=== PATIENT | male | born 1965 | race Caucasian/White ===

== ENCOUNTER → 2017-01-17 | Outpatient (CLI) | payer BC ==
[2017-01-17 18:44] LABS: BASO % 0.1 %; BASO ABS # 0.01 K/uL (0-0.2); COMPLETE YES; EOS % 1.6 %; HEMATOCRIT 40.7 % (42-52); IG% 0.1 %; LYMPH % 29.4 %; LYMPH ABS # 2.18 K/uL (1.2-3.4); MEAN CELL VOLUME 85.9 fL (80-100); MEAN CORPUSCULAR HEMOGLOBIN 30.4 pg (25-34); MEAN CORPUSCULAR HGB CONC 35.4 g/dl (32-36); MEAN PLATELET VOLUME 9.7 fL (7.4-10.4); NEUT % 64.8 %; PLATELET COUNT 123 K/uL (130-400); RED BLOOD COUNT 4.74 M/uL (4.7-6.1); WHITE BLOOD COUNT 7.42 K/uL (4.8-10.8)
[2017-01-17 19:09] LABS: ALT/SGPT 41 U/L (12-78); BLOOD UREA NITROGEN 16 mg/dl (7-18); BUN/CREATININE RATIO 11.9 (10-20); C-REACTIVE PROTEIN < 0.29 mg/dl (0-0.29); CALCIUM 9.1 mg/dl (8.5-10.1); CARBON DIOXIDE 28 mmol/L (21-32); CHLORIDE 108 mmol/L (98-107); GLUCOSE 85 mg/dl (70-99); POTASSIUM 4.2 mmol/L (3.5-5.1); SODIUM 140 mmol/L (136-145)
[2017-01-17 19:14] LABS: ALB/GLOB RATIO 1.2 (0.9-2); ALKALINE PHOSPHATASE 67 U/L (45-117); AST/SGOT 18 U/L (15-37); FERRITIN 83.7 ng/ml (8.0-388.0)
[2017-01-18 07:12] LABS: ESTIMATED AVERAGE GLUCOSE 100 mg/dl; HA1C FLAG Normal (Normal)
== END | disposition home or self-care (01) ==
LOC: C.LAB 18:21
PROVIDERS: ATTEND Chiropractor
DX: M79.1 Myalgia (principal)

== ENCOUNTER 2023-05-01 17:27 | Inpatient (IN) ==
--- NOTE | 2023-05-01 18:33 | ED Triage Note ---
Date of Service May 01, 2023 History of Present Illness This patient was briefly evaluated while in triage. An abbreviated physical exam was performed. This patient is a 58-year-old Male who presents to the ED for evaluation following referral by Dr. Colindres, oncology. History of tongue/throat cancer on chemo/radiation and has been unable to tolerate PO intake for the last 3 weeks. Needs GI/Surg consult for PEG tube insertion. Denies fevers. Physical Exam Constitutional: alert and oriented x3. no acute distress. lethargic HEENT: normocephalic, atraumatic. normal conjunctiva.PERRLA. EOM's grossly intact. Respiratory: lungs are clear to auscultation without wheezes, rhonchi, or rales bilaterally. equal chest rise. normal respiratory effort, no accessory muscle use. Cardiovascular: normal heart sounds without murmur. regular rate and rhythm. GI: abdomen is soft, nontender. MSK: moves all 4 extremities spontaneously Psych:appropriate mood and affect. Initial orders for labs and / or imaging were placed and patient was taken to the room immediately. Please see further documentation for the full ED course.
[2023-05-01] MEDS ORDERED: SODIUM CHLORIDE 0.9% 1,000 ML IV ONE ×2 (18:48→22:29)
--- NOTE | 2023-05-01 18:49 | Emergency Department Note ---
Impression & Plan Malnutrition due to starvation, Squamous cell carcinoma of base of tongue, Dehydration, Hypomagnesemia, Pancytopenia ED Provider Note NAME: ERICH MAIER AGE: 58 SEX: M ARRIVES VIA: Walk-In INFORMANT: Patient ED PROVIDER(S): Daniel Montalvo MD CHIEF COMPLAINT: Poor oral intake, SCC of the tongue, Referred. Consultation for feeding tube. PLAN: Disposition: Admit MEDICAL DECISION MAKING: The patient is a pleasant 58-year-old gentleman with a past medical history of squamous cell carcinoma of the tongue who presents to the emergency department referred by his oncology office for admission for IV fluid hydration and specialty consultation for possible feeding tube placement. The patient was seen in the emergency department on 04/25 and 04/20 for poor oral intake, syncope and rule out for bowel obstruction. He has CT of the and pelvis that was negative for acute process on the . He reports moving his bowels once since his emergency department visit last week but has not done so since but is also not had much to eat. He denies abdominal pain. He reports he has nausea and vomiting that has been chronic and is unchanged. He reports stable pain in his tongue and throat related to his tongue cancer for which she is receiving radiation and chemotherapy though has not had chemotherapy for a couple of weeks due to thrombocytopenia. He denies any chest pain, shortness of breath, cough, congestion, urinary symptoms. Of note, the patient did arrive to emergency department during time of high volume, acuity and prolonged emergency department waiting times. Critical pathways initiated from triage. On my evaluation the patient is fatigued appearing but no acute distress, afebrile stable vital signs. Appears clinically dry. Abdomen is benign. Per the patient and his 's request I did contact [facility] oncology on-call and reviewed the case with Dr. Watts who is not directly familiar with the patient though would find it reasonable if the patient has had continued decline with poor oral intake to consider feeding tube and admission for supportive care. WBC 1.2k, H/H 7.7/21.4, and platelets 62K approximate 2, slightly decreased from recent values in the setting of recent pancytopenia from the patient's cancer treatment. Chemistry without metabolic acidosis. Creatinine is normal. BUNs/creatinine is 25, consistent with the patient's clinically dry appearance. Magnesium 1.5 with IV repletion provided. LFTs without significant abnormality. TSH is low however free T4 within normal limits. Case was discussed with Dr. Moreno, [facility] hospitalist who will evaluate the patient for admission. Case discussed with GI on-call, Dr. Cisse, on behalf of admitting team. Patient should be able to have PEG tube placed during his hospitalization here. Admitting team was updated. Triage Nursing notes reviewed and agree them. Prior/outside medical records reviewed Vital Signs: reviewed Differential diagnosis: Gastroenteritis, food borne illness, infections, appendicitis, diverticulitis, inflammatory bowel disease, obstruction, GI bleed, biliary pathology, volvulus, as well as other pathologies. ER treatment provided: See below. Diagnostics interpreted by me: ECG: Normal sinus rhythm, 84 bpm, no ectopy, no overt ST elevation or depression, LVH, QTc 423, QRS 84. Significant artifact is present. Cardiac Monitoring: An order for continuous cardiac monitoring was placed and demonstrated Normal sinus rhythm, 84 bpm, no ectopy. Laboratory studies: See below Imaging studies: See below Consultation(s): Dr. Watts, [facility] oncology on-call. HPI: The patient is a pleasant 58-year-old gentleman with a past medical history of squamous cell carcinoma of the tongue who presents to the emergency department referred by his oncology office for admission for IV fluid hydration and specialty consultation for possible feeding tube placement. The patient was seen in the emergency department on 04/25 and 04/20 for poor oral intake, syncop e and rule out for bowel obstruction. He has CT of the and pelvis that was negative for acute process on the . He reports moving his bowels once since his emergency department visit last week but has not done so since but is also not had much to eat. He denies abdominal pain. He reports he has nausea and vomiting that has been chronic and is unchanged. He reports stable pain in his tongue and throat related to his tongue cancer for which she is receiving radiation and chemotherapy though has not had chemotherapy for a couple of weeks due to thrombocytopenia. He denies any chest pain, shortness of breath, cough, congestion, urinary symptoms. ROS: See above HPI for pertinent positives & negatives. A total of 10 systems reviewed and were otherwise negative. VITALS:See Below PHYSICAL EXAMINATION: GENERAL: Awake, alert, fatigued-appearing, in no distress HENT: Normocephalic, atraumatic. Oropharynx with dry mucous membranes. EYES: Normal conjunctiva. Sclera non-icteric. NECK: Supple. No nuchal rigidity. FROM. No JVD. No stridor. No pain with tracheal manipulation. RESPIRATORY: Clear to auscultation. CARDIAC: Regular rate, normal rhythm. Extremities warm and well perfused. Pulses equal. ABDOMEN: Soft, non-distended. No tenderness to palpation. No rebound or guarding. No masses. RECTAL: Deferred. MUSCULOSKELETAL: Chest examination reveals no tenderness. The back is symmetrical on inspection without obvious abnormality. There is no CVA tenderness to palpation. No joint edema. LOWER EXTREMITIES: Calves are equal size bilaterally and non-tender. No edema. No discoloration. NEURO: Normal sensorium. No sensory or motor deficits noted. SKIN: No rash or jaundice noted. Daniel Montalvo MD Past Med/Surg History Medical History GERD (gastroesophageal reflux disease) Hypertension Osteoarthritis Pancytopenia Shingles rash childhood - age 14 - on face Squamous cell carcinoma of base of tongue Umbilical hernia Vitiligo Surgical History H/O arthroscopy of left knee 07/09/2001 H/O hernia repair Umbilical; Dr. Christopher Dumont Hx of colonoscopy 04/01/2021; hyperplastic polyp, repeat 10 yrs / COLONOSCOPY FLEXIBLE PROXIMAL DIAGNOSTICperformed by Paco Kim MD at [facility] Family History Mother Diabetes mellitus, type II Lymphoma Father Hypertension Parkinson disease Osteoarthritis Sister No problems noted. Sister No problems noted. 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; How many Children do You have: 2 Feels Safe at Home: Yes Allergies Allergies Allergy/AdvReac Type Severity Reaction Status Date / Time Penicillins Allergy Mild Hives Verified 05/01/23 07:45 pollen Allergy Mild Hives Uncoded 05/01/23 07:45 Home Meds Home Medications Medication Instructions Recorded Confirmed cholecalciferol (vitamin D3) 125 125 mcg PO DAILY 03/01/23 05/01/23 mcg (5,000 unit) capsule multivitamin 1 tab PO DAILY 03/01/23 05/01/23 polyethylene glycol 3350 17 17 g PO .MWF 03/01/23 05/01/23 gram/dose oral powder krill 350 mg-omega-3 90 mg-dha 24 1 cap PO DAILY 04/04/23 05/01/23 mg-epa 50 [id number] capsule (MegaRed [employer]-3 Krill Oil) ondansetron HCl 8 mg tablet 8 mg PO Q8H PRN nausea/vomiting 04/04/23 05/01/23 prochlorperazine maleate 10 mg 10 mg PO Q6H PRN nausea/vomiting 04/04/23 05/01/23 tablet (Compazine) hydrochlorothiazide 25 mg tablet 25 mg PO DAILY 04/17/23 05/01/23 ibuprofen 400 mg tablet 400 mg PO Q6H PRN Pain 04/17/23 05/01/23 Magic Mouthwash 300 mL mouthwash 10 ml mucous membrane ACHS PRN 04/25/23 05/01/23 Sore Throat metoclopramide HCl 10 mg tablet 10 mg PO Q6 05/01/23 05/01/23 pantoprazole 40 mg tablet,delayed 40 mg PO QAM 05/01/23 05/01/23 release Previous Rx's Medication Instructions Recorded tramadol 50 mg tablet 50 mg PO Q8H PRN pain #60 tabs 04/24/23 Results & Data (ED) Vital Signs Vital Signs - 24 hr 05/01/23 18:33 05/01/23 19:27 05/01/23 22:19 Temperature 36.4 C L Temperature Source Temporal Artery Scan Pulse Rate 93 H Pulse Rate [Right Finger] 84 86 Respiratory Rate 20 16 18 Respiratory Effort / Characteristics Non-Labored Non-Labored Spontaneous Non-Labored Spontaneous Respiratory Depth Normal Normal Blood Pressure 114/76 Blood Pressure [Right Arm] 112/75 121/78 Blood Pressure Mean 88 Blood Pressure Mean [Right Arm] 87 92 Pulse Oximetry 99 98 100 Oxygen Delivery Method Room Air Room Air Room Air Sepsis Recent Fever Within 48 Hours No Sepsis New/Unexplained Change in Mental Status N/A Sepsis Action Taken by Nursing No Action Required 05/02/23 00:15 05/02/23 01:59 Temperature Temperature Source Pulse Rate Pulse Rate [Right Finger] 86 82 Respiratory Rate 16 18 Respiratory Effort / Characteristics Non-Labored Spontaneous Non-Labored Spontaneous Respiratory Depth Normal Blood Pressure Blood Pressure [Right Arm] 131/75 126/78 Blood Pressure Mean Blood Pressure Mean [Right Arm] 93 94 Pulse Oximetry 100 98 Oxygen Delivery Method Room Air Room Air Sepsis Recent Fever Within 48 Hours Sepsis New/Unexplained Change in Mental Status Sepsis Action Taken by Nursing Laboratory Data Attestation: I reviewed the patient's lab results. 05/01/23 20:02 05/01/23 19:54 Lab Results 05/01/23 05/01/23 05/01/23 Range/Units 19:54 19:54 19:59 WBC (4.8-10.8) K/ul RBC (4.70-6.10) M/uL Hgb (14.0-18.0) g/dl POC Hgb 7.5 L (14.0-18.0) g/dl Hct (42.0-52.0) % POC Hct 22 L (42-52) % MCV (80.0-100.0) fL MCH (25.0-34.0) pg MCHC (32.0-36.0) g/dL RDW Std Deviation (36.4-46.3) fL RDW Coeff of Tiesha (11.5-14.5) % Plt Count (130-400) K/uL MPV (9.4-12.4) fL Neutrophils % (Manual) % Lymphocytes % (Manual) % Monocytes % (Manual) % Myelocytes % (Man) % Neutrophils # (Manual) (1.40-6.50) K/uL Total Absolute Neuts (1.4-6.5) K/uL Lymphocytes # (Manual) (1.2-3.4) K/uL Total Abs Lymphocytes (1.2-3.4) K/uL Monocytes # (Manual) (0.11-0.59) K/uL Myelocytes # (Manual) (0-0) K/uL Polychromasia Anisocytosis PT 12.2 H (9.0-12.0) Seconds INR 1.1 (0.9-1.1) POC Sodium 136 (135-144) mmol/L Sodium 135 L (136-145) mmol/L POC Potassium 4.7 (3.3-5.0) mmol/L Potassium 4.7 (3.5-5.1) mmol/L POC Chloride 100 L (101-112) mmol/L Chloride 102 (98-107) mmol/L Carbon Dioxide 25 (21-32) mmol/L POC Total CO2 24 (24-31) mmol/L Anion Gap 8 (3-11) POC Anion Gap 17.0 (16-25) mmol/L POC BUN 20 H (7-18) mg/dl BUN 21 (6-23) mg/dl Creatinine 0.84 (0.6-1.4) mg/dl POC Creatinine 0.8 (0.6-1.3) mg/dl Est Cr Clr Drug Dosing 102.1 ml/min Est GFR ( Amer) 111.9 ml/min Est GFR (Non-Af Amer) 96.5 ml/min BUN/Creatinine Ratio 25.0 H (10-20) Glucose 94 (70-99(Fasting)) mg/dl POC Glucose (other) 94 (70-99) mg/dl Calcium 9.9 (8.6-10.3) mg/dl POC Ioniz Calcium Grace 1.27 (1.12-1.32) mmol/l Phosphorus 4.1 (2.5-4.9) mg/dl Magnesium 1.5 L (1.7-2.4) mg/dl Total Bilirubin 1.0 (0.2-1.0) mg/dl Direct Bilirubin 0.3 H (0-0.2) mg/dl AST 12 L (13-39) U/L ALT 12 (7-52) U/L Alkaline Phosphatase 68 (34-104) U/L Total Protein 6.6 (6.0-8.3) gm/dl Albumin 4.2 (3.4-5.0) gm/dl Globulin 2.4 L (2.5-4.0) gm/dl Albumin/Globulin Ratio 1.8 (0.9-2) Lipase 54 (11-82) U/L TSH 0.020 L (0.300-4.500) uIu/ml Free T4 1.05 (0.61-1.60) ng/dl 05/01/23 Range/Units 20:02 WBC 1.25 L (4.8-10.8) K/ul RBC 2.48 L (4.70-6.10) M/uL Hgb 7.7 L (14.0-18.0) g/dl POC Hgb (14.0-18.0) g/dl Hct 21.4 L (42.0-52.0) % POC Hct (42-52) % MCV 86.3 (80.0-100.0) fL MCH 31.0 (25.0-34.0) pg MCHC 36.0 (32.0-36.0) g/dL RDW Std Deviation 37.9 (36.4-46.3) fL RDW Coeff of Tiesha 16.3 H (11.5-14.5) % Plt Count 62 L (130-400) K/uL MPV 9.8 (9.4-12.4) fL Neutrophils % (Manual) 85 % Lymphocytes % (Manual) 9 % Monocytes % (Manual) 5 % Myelocytes % (Man) 1 % Neutrophils # (Manual) 1.06 L (1.40-6.50) K/uL Total Absolute Neuts 1.06 L (1.4-6.5) K/uL Lymphocytes # (Manual) 0.11 L (1.2-3.4) K/uL Total Abs Lymphocytes 0.11 L (1.2-3.4) K/uL Monocytes # (Manual) 0.06 L (0.11-0.59) K/uL Myelocytes # (Manual) 0.01 H (0-0) K/uL Polychromasia 1+ Anisocytosis Present PT (9.0-12.0) Seconds INR (0.9-1.1) POC Sodium (135-144) mmol/L Sodium (136-145) mmol/L POC Potassium (3.3-5.0) mmol/L Potassium (3.5-5.1) mmol/L POC Chloride (101-112) mmol/L Chloride (98-107) mmol/L Carbon Dioxide (21-32) mmol/L POC Total CO2 (24-31) mmol/L Anion Gap (3-11) POC Anion Gap (16-25) mmol/L POC BUN (7-18) mg/dl BUN (6-23) mg/dl Creatinine (0.6-1.4) mg/dl POC Creatinine (0.6-1.3) mg/dl Est Cr Clr Drug Dosing ml/min Est GFR ( Amer) ml/min Est GFR (Non-Af Amer) ml/min BUN/Creatinine Ratio (10-20) Glucose (70-99(Fasting)) mg/dl POC Glucose (other) (70-99) mg/dl Calcium (8.6-10.3) mg/dl POC Ioniz Calcium Grace (1.12-1.32) mmol/l Phosphorus (2.5-4.9) mg/dl Magnesium (1.7-2.4) mg/dl Total Bilirubin (0.2-1.0) mg/dl Direct Bilirubin (0-0.2) mg/dl AST (13-39) U/L ALT (7-52) U/L Alkaline Phosphatase (34-104) U/L Total Protein (6.0-8.3) gm/dl Albumin (3.4-5.0) gm/dl Globulin (2.5-4.0) gm/dl Albumin/Globulin Ratio (0.9-2) Lipase (11-82) U/L TSH (0.300-4.500) uIu/ml Free T4 (0.61-1.60) ng/dl Administered Medications Sodium Chloride (Nss) 1,000 mls @ 60 mls/hr IV .[id number] ONE Stop: 05/02/23 15:08 Last Admin: 05/01/23 23:11 Dose: 60 mls/hr Documented By: DEBORAH Discontinued Medications Bisacodyl (Bisacodyl 10 Mg Supp) 10 mg AL NOW STA Stop: 05/02/23 01:36 Last Admin: 05/02/23 02:06 Dose: Not Given Documented By: DEBORAH Sodium Chloride (Nss) 1,000 mls @ 999 mls/hr IV .[id number] ONE Stop: 05/01/23 19:48 Last Infusion: 05/01/23 21:20 Dose: 0 mls/hr Documented By: Admin: 05/01/23 19:58 Dose: 999 mls/hr Documented By: DEBORAH Famotidine (Pepcid 20mg Iv Push) 20 mg in 5 mls @ 2.5 mls/min IV NOW STA Stop: 05/01/23 20:30 Last Admin: 05/01/23 21:32 Dose: 2.5 mls/min Documented By: DEBORAH Magnesium Sulfate/Dextrose (Magnesium Sulfate / D5w) 1 gm in 100 mls @ 100 mls/hr IV Q1H SHADY Stop: 05/01/23 22:28 Last Infusion: 05/01/23 23:12 Dose: 0 mls/hr Documented By: Admin: 05/01/23 22:18 Dose: 100 mls/hr Documented By: Infusion: 05/01/23 22:18 Dose: 100 mls/hr Documented By: Admin: 05/01/23 21:33 Dose: 100 mls/hr Documented By: DEBORAH Ondansetron HCl (Ondansetron Inj 2 Mg/Ml 2 Ml Vial) 4 mg IV NOW STA Stop: 05/01/23 20:30 Last Admin: 05/01/23 21:32 Dose: 4 mg Documented By: DEBORAH Discharge Plan Visit Data Chief Complaint: Feeding/PEG Tube Replacement Stated Complaint: PEG TUBE ED Provider: Daniel Montalvo Discharge Problem: Malnutrition due to starvation, Squamous cell carcinoma of base of tongue, Dehydration, Hypomagnesemia, Pancytopenia Forms Stand Alone Forms: [facility] Prescriptions Prescriptions: No Action cholecalciferol (vitamin D3) 125 mcg (5,000 unit) capsule 125 mcg PO DAILY multivitamin Tablet 1 tab PO DAILY polyethylene glycol 3350 17 gram/dose powder 17 g PO .MWF MegaRed [employer]-3 Krill Oil 899-87-74-50 mg capsule 1 cap PO DAILY ondansetron HCl 8 mg tablet 8 mg PO Q8H PRN (Reason: nausea/vomiting) prochlorperazine maleate [Compazine] 10 mg tablet 10 mg PO Q6H PRN (Reason: nausea/vomiting) ibuprofen 400 mg tablet 400 mg PO Q6H PRN (Reason: Pain) Patient Comments: has not been taking while on chemo hydrochlorothiazide 25 mg tablet 25 mg PO DAILY Patient Comments: not currently taking pantoprazole 40 mg tablet,delayed release (DR/EC) 40 mg PO QAM tramadol 50 mg tablet 50 mg PO Q8H PRN (Reason: pain) Qty: 60 3RF Magic Mouthwash 300 mL mouthwash 10 ml mucous membrane ACHS PRN (Reason: Sore Throat) metoclopramide HCl 10 mg tablet 10 mg PO Q6 Rx Instructions: take for 7 days ... ordered 04/25/23 Referrals Referrals: Brent Schneider PA-C [Primary Care Provider] -
[2023-05-01 20:12] LABS: iSTAT Creatinine 0.8 mg/dl (0.6-1.3); iSTAT Hemoglobin 7.5 g/dl (14.0-18.0); iSTAT Ionized Calcium 1.27 mmol/l (1.12-1.32); iSTAT Potassium 4.7 mmol/L (3.3-5.0)
[2023-05-01 20:27] LABS: Albumin Globulin Ratio 1.8 (0.9-2); Albumin Level 4.2 gm/dl (3.4-5.0); Bilirubin Direct 0.3 mg/dl (0-0.2); Calcium 9.9 mg/dl (8.6-10.3); Creatinine Clr Calc Pharmacy 102.1 ml/min; Est GFR (African American) 111.9 ml/min; Est GFR (Non-African American) 96.5 ml/min; Globulin 2.4 gm/dl (2.5-4.0); Magnesium 1.5 mg/dl (1.7-2.4); Phosphorus 4.1 mg/dl (2.5-4.9); Potassium 4.7 mmol/L (3.5-5.1); Total Protein 6.6 gm/dl (6.0-8.3)
[2023-05-01] MEDS ORDERED: FAMOTIDINE 20MG IV PUSH 20 MG/5 ML SYR IV STA (20:29)
[2023-05-01] MEDS ORDERED: ONDANSETRON INJ 2 MG/ML 2 ML VIAL IV STA (20:29)
[2023-05-01 20:30] LABS: Hematocrit (blood only) 21.4 % (42.0-52.0); Hemoglobin 7.7 g/dl (14.0-18.0); Mean Corpuscular Volume 86.3 fL (80.0-100.0); Mean Platelet Volume 9.8 fL (9.4-12.4); Platelet Count 62 K/uL (130-400); RDW Coefficient of Variation 16.3 % (11.5-14.5); RDW Standard Deviation 37.9 fL (36.4-46.3); Red Blood Count 2.48 M/uL (4.70-6.10); White Blood Count 1.25 K/ul (4.8-10.8)
[2023-05-01 20:36] LABS: INR 1.1 (0.9-1.1); Prothrombin Time 12.2 Seconds (9.0-12.0)
[2023-05-01 20:43] LABS: Thyroid Stimulating Hormone 0.02 uIu/ml (0.300-4.500)
[2023-05-01 20:59] LABS: ALC (manual) 0.11 K/uL (1.2-3.4); ANC (manual) 1.06 K/uL (1.4-6.5); Anisocytosis Present; Lymphocytes # (manual) 0.11 K/uL (1.2-3.4); Lymphocytes % (manual) 9 %; Monocytes # (manual) 0.06 K/uL (0.11-0.59); Monocytes % (manual) 5 %; Myelocytes # (manual) 0.01 K/uL (0-0); Myelocytes % (manual) 1 %; Neutrophils # (manual) 1.06 K/uL (1.40-6.50); Neutrophils % (manual) 85 %; Polychromasia 1+
[2023-05-01 21:18] LABS: T4 Free Thyroxine 1.05 ng/dl (0.61-1.60)
[2023-05-01] MEDS: MAGNESIUM SULFATE / D5W 1 GM/100 ML BAG IV SCH ×2 (21:33→22:18)
--- NOTE | 2023-05-02 01:28 | History & Physical Report ---
Date of Service May 02, 2023 Assessment & Plan (1) Hypomagnesemia: Plan: Secondary to decreased p.o. intake right tonsillar CA ongoing chemoradiation GERD on PPI chronic pancytopenia likely secondary to chemotherapy GMF Replace magnesium GI consult re: PEG tube placement (ER provider already in touch with Dr. Cisse.) Radiation oncology consultation inpatient to facilitate treatment schedule DVT prophylaxis. SCDS Re: Thrombocytopenia Full code Patient requesting updates providers. Ms. Fern Pak, contact #[phone]. Text document was generated using [employer] voice recognition software. It may contain grammatical or spelling errors. Kindly contact undersigned for clarification of any documentation item in question. History of Present Illness Chief Complaint: Poor oral intake, PEG tube placement Primary Care Provider: Brent Schneider PA-C History obtained from patient and records. Medical history significant for right tonsillar CA ongoing chemoradiation, chronic pancytopenia (baseline hemoglobin of 9), GERD. 2 [facility] ER visits this month. 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 Patient currently undergoing chemoradiation. Progressive difficulty in oral intake with regurgitation over the last few weeks. Mouth sores and obstipation symptoms for about a week. No abdominal pain. No bleeding noted. Some weight loss. No chest pain, no SOB. No fever, no chills. Outpatient providers recommended PEG tube placement following office visit this week. Patient directed to ER for evaluation. 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 Allergies Allergy/AdvReac Type Severity Reaction Status Date / Time Penicillins Allergy Mild Hives Verified 05/01/23 07:45 pollen Allergy Mild Hives Uncoded 05/01/23 07:45 Home Medications Medication Instructions Recorded Confirmed Type cholecalciferol (vitamin D3) 125 125 mcg PO DAILY 03/01/23 05/01/23 History mcg (5,000 unit) capsule multivitamin 1 tab PO DAILY 03/01/23 05/01/23 History polyethylene glycol 3350 17 17 g PO .MWF 03/01/23 05/01/23 History gram/dose oral powder krill 350 mg-omega-3 90 mg-dha 24 1 cap PO DAILY 04/04/23 05/01/23 History mg-epa 50 [id number]-[id number] capsule (MegaRed [place]-3 Krill Oil) ondansetron HCl 8 mg tablet 8 mg PO Q8H PRN nausea/vomiting 04/04/23 05/01/23 History prochlorperazine maleate 10 mg 10 mg PO Q6H PRN nausea/vomiting 04/04/23 05/01/23 History tablet (Compazine) hydrochlorothiazide 25 mg tablet 25 mg PO DAILY 04/17/23 05/01/23 History ibuprofen 400 mg tablet 400 mg PO Q6H PRN Pain 04/17/23 05/01/23 History tramadol 50 mg tablet 50 mg PO Q8H PRN pain #60 tabs 04/24/23 05/01/23 Rx Magic Mouthwash 300 mL mouthwash 10 ml mucous membrane ACHS PRN 04/25/23 05/01/23 History Sore Throat metoclopramide HCl 10 mg tablet 10 mg PO Q6 05/01/23 05/01/23 History pantoprazole 40 mg tablet,delayed 40 mg PO QAM 05/01/23 05/01/23 History release Past Med/Surg History Medical History GERD (gastroesophageal reflux disease) Hypertension Osteoarthritis Pancytopenia Shingles rash childhood - age 14 - on face Squamous cell carcinoma of base of tongue Umbilical hernia Vitiligo Surgical History H/O arthroscopy of left knee 07/09/2001 H/O hernia repair Umbilical; Dr. Christopher Dumont Hx of colonoscopy 04/01/2021; hyperplastic polyp, repeat 10 yrs / COLONOSCOPY FLEXIBLE PROXIMAL DIAGNOSTICperformed by Paco Kim MD at [facility]COPY [facility] Family History Mother Diabetes mellitus, type II Lymphoma Father Hypertension Parkinson disease Osteoarthritis Sister No problems noted. Sister No problems noted. 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; How many Children do You have: 2 Other Information That Helps Us Care for You: No Feels Safe at Home: Yes Safety Concerns: Feels Safe At This Time Assistive Devices: Glasses Review of Systems Review of Systems: As per HPI, all other systems reviewed and negative Physical Exam Physical Exam: GENERAL: Slightly uncomfortable, pleasant, no respiratory distress SKIN: Pallor, warm HEENT: Partial alopecia, pale palpebral conjunctivae, no ptosis, dry buccal mucosa NECK : Supple, mild erythema, minimal tenderness CHEST : CTA, no tenderness HEART : RRR, no obvious murmurs ABDOMEN: Some distention, nontender EXTREMITIES : No LE swelling/tenderness, no other conspicuous deformities noted NEUROLOGIC : Coherent, no facial asymmetry, no other gross focality Results & Data Results & Data Vital Signs (Past 12 Hours) Vital Signs Temp Pulse Pulse Resp BP BP Pulse Ox 05/02/23 00:15 86 16 131/75 100 05/01/23 22:19 86 18 121/78 100 05/01/23 19:27 84 16 112/75 98 05/01/23 18:33 36.4 C L 93 H 20 114/76 99 O2 Del Method 05/02/23 00:15 Room Air 05/01/23 22:19 Room Air 05/01/23 19:27 Room Air 05/01/23 18:33 Room Air Laboratory Results Laboratory Results WBC 1.25 K/ul (4.8-10.8) L 05/01/23 20:02 RBC 2.48 M/uL (4.70-6.10) L 05/01/23 20:02 Hgb 7.7 g/dl (14.0-18.0) L 05/01/23 20:02 POC Hgb 7.5 g/dl (14.0-18.0) L 05/01/23 19:59 Hct 21.4 % (42.0-52.0) L 05/01/23 20:02 POC Hct 22 % (42-52) L 05/01/23 19:59 MCV 86.3 fL (80.0-100.0) 05/01/23 20:02 MCH 31.0 pg (25.0-34.0) 05/01/23 20:02 MCHC 36.0 g/dL (32.0-36.0) 05/01/23 20:02 RDW Std Deviation 37.9 fL (36.4-46.3) 05/01/23 20:02 RDW Coeff of Tiesha 16.3 % (11.5-14.5) H 05/01/23 20:02 Plt Count 62 K/uL (130-400) L 05/01/23 20:02 MPV 9.8 fL (9.4-12.4) 05/01/23 20:02 Neutrophils % (Manual) 85 % 05/01/23 20:02 Lymphocytes % (Manual) 9 % 05/01/23 20:02 Monocytes % (Manual) 5 % 05/01/23 20:02 Myelocytes % (Man) 1 % 05/01/23 20:02 Neutrophils # (Manual) 1.06 K/uL (1.40-6.50) L 05/01/23 20:02 Total Absolute Neuts 1.06 K/uL (1.4-6.5) L 05/01/23 20:02 Lymphocytes # (Manual) 0.11 K/uL (1.2-3.4) L 05/01/23 20:02 Total Abs Lymphocytes 0.11 K/uL (1.2-3.4) L 05/01/23 20:02 Monocytes # (Manual) 0.06 K/uL (0.11-0.59) L 05/01/23 20:02 Myelocytes # (Manual) 0.01 K/uL (0-0) H 05/01/23 20:02 Polychromasia 1+ 05/01/23 20:02 Anisocytosis Present 05/01/23 20:02 PT 12.2 Seconds (9.0-12.0) H 05/01/23 19:54 INR 1.1 (0.9-1.1) 05/01/23 19:54 POC Sodium 136 mmol/L (135-144) 05/01/23 19:59 Sodium 135 mmol/L (136-145) L 05/01/23 19:54 POC Potassium 4.7 mmol/L (3.3-5.0) 05/01/23 19:59 Potassium 4.7 mmol/L (3.5-5.1) 05/01/23 19:54 POC Chloride 100 mmol/L (101-112) L 05/01/23 19:59 Chloride 102 mmol/L (98-107) 05/01/23 19:54 Carbon Dioxide 25 mmol/L (21-32) 05/01/23 19:54 POC Total CO2 24 mmol/L (24-31) 05/01/23 19:59 Anion Gap 8 (3-11) 05/01/23 19:54 POC Anion Gap 17.0 mmol/L (16-25) 05/01/23 19:59 POC BUN 20 mg/dl (7-18) H 05/01/23 19:59 BUN 21 mg/dl (6-23) 05/01/23 19:54 Creatinine 0.84 mg/dl (0.6-1.4) 05/01/23 19:54 POC Creatinine 0.8 mg/dl (0.6-1.3) 05/01/23 19:59 Est Cr Clr Drug Dosing 102.1 ml/min 05/01/23 19:54 Est GFR ( Amer) 111.9 ml/min 05/01/23 19:54 Est GFR (Non-Af Amer) 96.5 ml/min 05/01/23 19:54 BUN/Creatinine Ratio 25.0 (10-20) H 05/01/23 19:54 Glucose 94 mg/dl (70-99(Fasting)) 05/01/23 19:54 POC Glucose (other) 94 mg/dl (70-99) 05/01/23 19:59 Calcium 9.9 mg/dl (8.6-10.3) 05/01/23 19:54 POC Ioniz Calcium Grace 1.27 mmol/l (1.12-1.32) 05/01/23 19:59 Phosphorus 4.1 mg/dl (2.5-4.9) 05/01/23 19:54 Magnesium 1.5 mg/dl (1.7-2.4) L 05/01/23 19:54 Total Bilirubin 1.0 mg/dl (0.2-1.0) 05/01/23 19:54 Direct Bilirubin 0.3 mg/dl (0-0.2) H 05/01/23 19:54 AST 12 U/L (13-39) L 05/01/23 19:54 ALT 12 U/L (7-52) 05/01/23 19:54 Alkaline Phosphatase 68 U/L (34-104) 05/01/23 19:54 Total Protein 6.6 gm/dl (6.0-8.3) 05/01/23 19:54 Albumin 4.2 gm/dl (3.4-5.0) 05/01/23 19:54 Globulin 2.4 gm/dl (2.5-4.0) L 05/01/23 19:54 Albumin/Globulin Ratio 1.8 (0.9-2) 05/01/23 19:54 Lipase 54 U/L (11-82) 05/01/23 19:54 TSH 0.020 uIu/ml (0.300-4.500) L 05/01/23 19:54 Free T4 1.05 ng/dl (0.61-1.60) 05/01/23 19:54 Diagnostic Findings Chest x-ray as per my interpretation no congestion EKG as per my interpretation : Rate 85, NSR, normal axis, T wave abnormalities inferior leads
[2023-05-02] MEDS ORDERED: PROMETHAZINE HCL 6.25 MG in SODIUM CHLORIDE 0.9% 50 ML IV PRN (01:32)
[2023-05-02] MEDS ORDERED: bisacodyL 10 MG SUPP PR STA (01:35)
[2023-05-02] MEDS: ACETAMINOPHEN 1,000 MG/100 ML VIAL IV PRN ×2 (04:47→14:30)
[2023-05-02] MEDS ORDERED: FIRST - Mouthwash BLM 119 ML PO PRN (05:20)
[2023-05-02] MEDS ORDERED: METOCLOPRAMIDE HCL 10 MG TABLET PO SCH (06:00)
[2023-05-02 06:58] LABS: BUN Creatinine Ratio 22.2 (10-20); Calcium 8.9 mg/dl (8.6-10.3); Creatinine Clr Calc Pharmacy 105.9 ml/min; Est GFR (African American) 113.5 ml/min; Magnesium 1.7 mg/dl (1.7-2.4); Potassium 4.1 mmol/L (3.5-5.1)
[2023-05-02 07:07] LABS: Hematocrit (blood only) 19.8 % (42.0-52.0); Hemoglobin 7.1 g/dl (14.0-18.0); Mean Corpuscular Hgb Conc 35.9 g/dL (32.0-36.0); Mean Corpuscular Volume 86.5 fL (80.0-100.0); Mean Platelet Volume 9.8 fL (9.4-12.4); Platelet Count 48 K/uL (130-400); RDW Coefficient of Variation 16.2 % (11.5-14.5); RDW Standard Deviation 38.3 fL (36.4-46.3); Red Blood Count 2.29 M/uL (4.70-6.10); White Blood Count 0.96 K/ul (4.8-10.8)
[2023-05-02 07:17] LABS: Ferritin 326.4 ng/ml (8-388)
[2023-05-02 07:20] LABS: Folate (Folic Acid),Ser orPlas 9.99 ng/ml (>5.38)
[2023-05-02 07:26] LABS: Lymphocytes # (auto) 0.18 K/uL (1.20-3.40); Lymphocytes % (auto) 18.8 %; Monocytes # (auto) 0.14 K/uL (0.11-0.59); Monocytes % (auto) 14.6 %; Neutrophils # (auto) 0.64 K/uL (1.40-6.50); Neutrophils % (auto) 66.6 %; RBC Morphology Unremarkable; Reticulocyte % 3.4 % (0.5-2.0); Reticulocytes # 0.08 10^6/uL (0.02-0.10)
[2023-05-02] MEDS: POLYETHYLENE (MIRALAX) 17 GM PACK PO SCH (08:03)
[2023-05-02] MEDS: MULTIVITAMIN TAB PO SCH (08:04)
[2023-05-02] MEDS ORDERED: PANTOprazole 40 MG TAB PO SCH (09:00)
[2023-05-02] MEDS ORDERED: SODIUM CHLORIDE 0.9% 250 ML IV PRN (09:13)
--- NOTE | 2023-05-02 09:16 | XRay Report ---
XR chest 1V portable CLINICAL HISTORY: preop TECHNIQUE: Single frontal radiograph of the chest was obtained. Comparison: Comparison is made to CT chest 04/25/2023 FINDINGS: No lines and tubes are seen. The cardiomediastinal silhouette is normal. The lungs are clear. No evid ence of pleural effusion or pneumothorax. IMPRESSION: No acute chest disease. ACT 112: Negative or not required by law. Electronically signed by: Won Dobbs M.D. 05/02/2023 9:15 AM
--- NOTE | 2023-05-02 09:31 | XRay Report ---
XR KUB/Abdomen 1 view CLINICAL HISTORY: constipation, nausea, tongue cancer TECHNIQUE: 1 view of the abdomen was obtained. Comparison: Comparison is made to CT abdomen pelvis 04/25/2023 FINDINGS: Lung bases are unremarkable. The osseous structures are grossly unremarkable. The bowel gas pattern i s nonobstructive. A moderate amount of stool is noted within the large bowel. IMPRESSION: Nonobstructive bowel gas pattern. ACT 112: Negative or not required by law. Electronically signed by: Won Dobbs M.D. 05/02/2023 9:30 AM
--- NOTE | 2023-05-02 09:44 | Radiation OncologyConsultation ---
Date of Consultation May 02, 2023 Assessment & Plan (1) Squamous cell carcinoma of base of tongue: 58-year-old gentleman admitted due to malnutrition and pancytopenia. He has been receiving combined radiation and chemotherapy. He has received 27 of a planned 33 fractions of radiation treatment. He has had significant weight loss. He has had ongoing issues with dysphagia. He has been using aloe vera juice and manuka honey at home. Tramadol has been prescribed. Arrangements were in the process for feeding tube placement. He has not received chemotherapy in approximately 2 weeks due to thrombocytopenia. Because of the ongoing issues with nutrition he presented to the emergency room and was ad mitted. Recommendation for gastrointestinal consultation for feeding tube placement. Radiation therapy was held for today. We will continue to follow him in the electronic medical record. Plan ATTENDING ADDENDUM: Mr. Pak is a 58-year-old gentleman who presents with head neck cancer. He is currently on treatment for chemotherapy and radiation therapy. The patient was recently admitted to the hospital. The patient was found to be pancytopenic. We were consulted to consider further radiation therapy. Given the patient's o verall performance status and blood counts, we will hold radiation therapy today. Gastroenterology is consulted and feeding tube should be considered for placement to help for enteral nutrition. We will continue to review the patient's case. Please call us with any further questions or concerns. History of Present Illness Reason for Consultation: Currently in active patient and radiation oncology. Requesting Physician: Dr. Nye. Attending Physician: Lora Nye MD History of Present Illness 02/07/2023. Patient self detected a right neck mass in October or November. He has had a history of a right sore throat. He saw his primary care provider and was prescribed Keflex for 5 days. Referred to ENT. There was some slight improvement. Seen at [facility]. Treated with Afrin and Medrol Dosepak for sinus congestion. 02/09/2023. CT of the soft tissues of the neck. IMPRESSION: 1. 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 ENT evaluation is recommended. 2. Metastatic right-sided cervical lymphadenopathy, as described above. 02/13/2023. Otolaryngology consultation (Dr. Delcid). Examination revealed an exophytic mass coming from the right side of the tongue. Referred to Dr. Wallace. 02/14/2023. Otolaryngology consultation (Dr. Wallace). In office biopsy of the tongue base was performed. Recommendation for PET/CT. We will present his case at tumor board. Anticipate chemotherapy and radiation. Preliminary staging [id number]. 02/14/2023. Path report of biopsy reveals: A. Lymph node, right cervical, fine-needle aspiration by pathology: Adequacy: Satisfactory for evaluation. Category: Malignant. Interpretation: Metastatic squamous cell carcinoma, HPV positive. 02/27/2023. PET/CT. IMPRESSION: 1. Metabolically active mass involving the right palatine tonsil with extension into the right vallecula,compatible with the biopsy-proven squamous cell carcinoma. 2. Metabolically-active right level IIA and IIB cervical lymph node metastases. 3. No FDG PET-CT evidence of distant metastasis. 02/28/2022. Multidisciplinary tumor board: Consensus on Recommendations: After multidisciplinary discussion, the official tumor board recommendation was for primary chemoradiation therapy (will complete in [place]) and baseline NavDx. Multi-disciplinary Team: The patient was discussed today along with members of the multidisciplinary head and neck tumor conference including representatives from Otolaryngology (Dr. Allen, Dr. Carbone, Dr. Wallace, Dr. Gibbs, Dr. Alexandra), Radiation Oncology (Dr. Willis, Dr. Be), Pathology (Dr. Deluna), Medical Oncology (Dr. Myles, Dr. Jimenez, Dr. Obregon), Radiology (Dr. Shaikh), Oral Surgery (Dr. Calderon), and Dentistry (Dr. Gallegos). The nature of the patient's condition was discussed at length. 03/06/2023. Medical oncology consultation (Dr. Precious Colindres). Recommendation for combined radiation and chemotherapy. Chemotherapy comprised of weekly cisplatin. 03/25/2023. Dental evaluation (Dr. Higgins). 03/26/2023. Initiation of combined radiation and chemotherapy. 05/01/2023. Emergency room evaluation and admission for malnutrition and pancy topenia. Patient has not received chemotherapy in approximately 2 weeks due to low counts. He has had dysphagia from the radiation therapy. Arrangements had been in the process for feeding tube placement. He has been eating and drinking very little. He had only 1 bowel movement of the past week. Laboratory studies in the emergency room revealed pancytopenia. He was admitted for further eval uation and treatment. Allergies Allergy/AdvReac Type Severity Reaction Status Date / Time Penicillins Allergy Mild Hives Verified 05/01/23 07:45 pollen Allergy Mild Hives Uncoded 05/01/23 07:45 Home Medications Medication Instructions Recorded Confirmed Type cholecalciferol (vitamin D3) 125 125 mcg PO DAILY 03/01/23 05/01/23 History mcg (5,000 unit) capsule multivitamin 1 tab PO DAILY 03/01/23 05/01/23 History polyethylene glycol 3350 17 17 g PO .MWF 03/01/23 05/01/23 History gram/dose oral powder krill 350 mg-omega-3 90 mg-dha 24 1 cap PO DAILY 04/04/23 05/01/23 History mg-epa 50 jl-xmutfdk-ugrdk capsule (MegaRed [place]-3 Krill Oil) ondansetron HCl 8 mg tablet 8 mg PO Q8H PRN nausea/vomiting 04/04/23 05/01/23 History prochlorperazine maleate 10 mg 10 mg PO Q6H PRN nausea/vomiting 04/04/23 05/01/23 History tablet (Compazine) hydrochlorothiazide 25 mg tablet 25 mg PO DAILY 04/17/23 05/01/23 History ibuprofen 400 mg tablet 400 mg PO Q6H PRN Pain 04/17/23 05/01/23 History tramadol 50 mg tablet 50 mg PO Q8H PRN pain #60 tabs 04/24/23 05/01/23 Rx Magic Mouthwash 300 mL mouthwash 10 ml mucous membrane ACHS PRN 04/25/23 05/01/23 History Sore Throat metoclopramide HCl 10 mg tablet 10 mg PO Q6 05/01/23 05/01/23 History pantoprazole 40 mg tablet,delayed 40 mg PO QAM 05/01/23 05/01/23 History release Patient History Medical History GERD (gastroesophageal reflux disease) Hypertension Osteoarthritis Pancytopenia Shingles rash childhood - age 14 - on face Squamous cell carcinoma of base of tongue Umbilical hernia Vitiligo Surgical History H/O arthroscopy of left knee 07/09/2001 H/O hernia repair Umbilical; Dr. Christopher Dumont Hx of colonoscopy 04/01/2021; hyperplastic polyp, repeat 10 yrs / COLONOSCOPY FLEXIBLE PROXIMAL DIAGNOSTICperformed by Paco Kim MD at ENDOSCOPY [facility] Family History Mother Diabetes mellitus, type II Lymphoma Father Hypertension Parkinson disease Osteoarthritis Sister No problems noted. Sister No problems noted. 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 Oropharynx. Right base of tongue. SCC. HPV positive. Preliminary staging [id number]. Stage III. TREATMENT: Receiving combined radiation and chemotherapy. Chemo has been held for 2 weeks due to low counts. Physical Exam Constitutional: WD/WN, vitals as above + lethargic Eyes: EOM intact bilaterally ENMT: Ears: no hearing impairment Mucositis of the posterior pharynx is noted. Neck: trachea midline, no thyromegaly Hyperpigmentation of the anterior neck. Respiratory: normal respiratory effort, lungs clear to auscultation Cardiovascular: RRR, no murmur, no edema Gastrointestinal (Abdomen): normal bowel sounds, soft, nontender, no hepatosplenomegaly Skin: no rashes, warm and dry Neurologic: Normal strength and coordination. Psychiatric: A+Ox3, euthymic affect Results (Rad Onc) 05/01/2023. Pancytopenia is noted. Time Spent Midlevel I spent [15 ] minutes in preparation for this follow up evaluation including reviewing all the clinical records, reviewing laboratory studies, pathology reports and imaging results. I spent [20] minutes with direct face to face interaction with the patient and/or family including performing a physical exam and answering all questions. I spent [15] minutes documenting this patient's visit. PG Care Time/CCT Total # of Minutes Spent Total Time Spent with Patient: Total time spent is greater than 50% in coordination of care (as documented) at patient's floor/unit and/or counseling patient: Coding Level of Care Code 00484 IN/OBS CONSULT LVL 3,45M Diagnoses Squamous cell carcinoma of base of tongue C01
--- NOTE | 2023-05-02 10:53 | Gastrointestinal Consultation ---
Date of Consultation May 02, 2023 Assessment & Plan (1) Squamous cell carcinoma of base of tongue: Pt is a 58 yo male w SCC of tongue on chemoradiation, admitted for poor PO intake and weight loss. He is having difficulty with swallowing foods/liquids, regurgitating foods once he tries to swallow them. - PPI coverage - IVF support - Needs medically optimized to address his neutropenia (Neupogen use discussed w hospitalist team who will confer w his Oncologist), anemia prior to PEG placement - Tentatively will arrange appt for push PEG to be done at [facility] OR by Dr. Dave next Monday 05/07 Supervising Physician Co-Signing Physician Notes I have seen and examined the patient with CHELY Mckeon whose note reflects our findings and plan. Push PEG has been arranged at [facility] 05/07 pending overall clinical condition regarding the neutropenia and anemia. History of Present Illness Reason for Consultation: PEG eval Requesting Physician: Dr. Елена Nye Attending Physician: Dr. Jagruti Snow History of Present Illness Patient is a 58 years old male with base of tongue SCC currently admitted for poor p.o. intake. Patient is undergoing chemotherapy since March, until 04/09 (held due to neutropenia). He is undergoing radiation daily. Over the last few weeks he has difficulty swallowing his foods. Feels that whenever he swallows his gag reflex makes him regurgitate foods. He has been trying to supplement with Ensure but similar issues. He has lost 40lbs in the last 2 months. Denies any pain during swallowing despite his mouth ulcers. Denies nausea or vomiting. No abdominal pain. Was having difficulty moving his bowels but no signs of abd obstruction per recent CT. He was referred to ED by his Oncologist due to his poor PO intake and also to get evaluated for PEG tube placement. Allergies Allergy/AdvReac Type Severity Reaction Status Date / Time Penicillins Allergy Mild Hives Verified 05/01/23 07:45 pollen Allergy Mild Hives Uncoded 05/01/23 07:45 Home Medications Medication Instructions Recorded Confirmed Type cholecalciferol (vitamin D3) 125 125 mcg PO DAILY 03/01/23 05/01/23 History mcg (5,000 unit) capsule multivitamin 1 tab PO DAILY 03/01/23 05/01/23 History polyethylene glycol 3350 17 17 g PO .MWF 03/01/23 05/01/23 History gram/dose oral powder krill 350 mg-omega-3 90 mg-dha 24 1 cap PO DAILY 04/04/23 05/01/23 History mg-epa 50 cy-lqnzjwa-npakd capsule (MegaRed Bement-3 Krill Oil) ondansetron HCl 8 mg tablet 8 mg PO Q8H PRN nausea/vomiting 04/04/23 05/01/23 History prochlorperazine maleate 10 mg 10 mg PO Q6H PRN nausea/vomiting 04/04/23 05/01/23 History tablet (Compazine) hydrochlorothiazide 25 mg tablet 25 mg PO DAILY 04/17/23 05/01/23 History ibuprofen 400 mg tablet 400 mg PO Q6H PRN Pain 04/17/23 05/01/23 History tramadol 50 mg tablet 50 mg PO Q8H PRN pain #60 tabs 04/24/23 05/01/23 Rx Magic Mouthwash 300 mL mouthwash 10 ml mucous membrane ACHS PRN 04/25/23 05/01/23 History Sore Throat metoclopramide HCl 10 mg tablet 10 mg PO Q6 05/01/23 05/01/23 History pantoprazole 40 mg tablet,delayed 40 mg PO QAM 05/01/23 05/01/23 History release Patient History Medical History GERD (gastroesophageal reflux disease) Hypertension Osteoarthritis Pancytopenia Shingles rash childhood - age 14 - on face Squamous cell carcinoma of base of tongue Umbilical hernia Vitiligo Surgical History H/O arthroscopy of left knee 07/09/2001 H/O hernia repair Umbilical; Dr. Christopher Bullock of colonoscopy 04/01/2021; hyperplastic polyp, repeat 10 yrs / COLONOSCOPY FLEXIBLE PROXIMAL DIAGNOSTICperformed by Paco Kim MD at [facility] Family History Mother Diabetes mellitus, type II Lymphoma Father Hypertension Parkinson disease Osteoarthritis Sister No problems noted. Sister No problems noted. 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; How many Children do You have: 2 Other Information That Helps Us Care for You: No Feels Safe at Home: Yes Safety Concerns: Feels Safe At This Time Assistive Devices: Glasses Review of Systems Review of Systems: All systems reviewed & are unremarkable except as noted in HPI & below Physical Exam Constitutional: WD/WN, vitals as above well groomed, cooperative and comfortable Eyes: PERRL, conjunctivae normal, anicteric sclerae ENMT: external ear and nose normal, oropharynx normal Respiratory: normal respiratory effort, lungs clear to auscultation Cardiovascular: RRR, no murmur, no edema Gastrointestinal (Abdomen): normal bowel sounds, soft, nontender, no hepatosplenomegaly Skin: no rashes, warm and dry no jaundice Psychiatric: A+Ox3, euthymic affect Lymphatic: no lymphedema Results & Data Vital Signs (Past 12 Hours) Vital Signs Temp Pulse Pulse Resp BP BP Pulse Ox 05/02/23 07:47 05/02/23 07:45 36.3 C L 92 H 16 128/78 98 05/02/23 04:20 05/02/23 04:19 36.6 C 91 H 18 128/72 99 05/02/23 03:30 88 18 131/75 98 05/02/23 03:06 85 16 139/79 98 05/02/23 01:59 82 18 126/78 98 05/02/23 00:15 86 16 131/75 100 O2 Del Method 05/02/23 07:47 Room Air 05/02/23 07:45 Room Air 05/02/23 04:20 Room Air 05/02/23 04:19 Room Air 05/02/23 03:30 Room Air 05/02/23 03:06 Room Air 05/02/23 01:59 Room Air 05/02/23 00:15 Room Air
--- NOTE | 2023-05-02 11:07 | Hospitalist Progress Note ---
Date of Service May 02, 2023 Assessment & Plan (1) Squamous cell carcinoma of base of tongue: (2) Pancytopenia: (3) Malnutrition due to starvation: Plan: This is a 58-year-old gentleman who is recent diagnosis of 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 He has had poor PO intake and presented to ED for malnutrition and admission for consideration of peg placement. Squamous of carcinoma base of tongue Pancytopenia Malnutrition due to starvation Admitted to medical Last chemotherapy approximately 2 weeks ago Currently receiving daily radiation, radiation oncology consulted Patient pancytopenic with WBC 0.96, H&H 7.1 and 19.8 and platelet count 48 Discussed with gastroenterology and patient currently unable to have PEG placement due to neutropenia. He will also need a push PEG which will need to be completed as outpatient at [facility]. Currently he is scheduled for Sunday on 05/07 to have this completed as outpatient at [facility]. This was discussed with Spencer Hunt. Pt will need to be optimized in meantime. Discussed with Dr. Colindres who recommends Neupogen 300mcg daily until ANC recovers, will give dose 05/02 and 05/03, count will need re evaluated for additional dosing Will transfuse 1 unit irradiated PRBC due to hgb 7.1 with pt c/o lightheadedness and fatigue Consult pharmacy for PPN DVT ppx: SCD FULL CODE PCP: Brent Schneider PA-C Dispo: [facility] patient for Peg Placement [facility] on monday 05/07. Pt needs a push peg with Dr. Dave. Will need stabilization of white blood cell count Pt was seen and examined in collaboration with Dr. Nye, please see addendum This note does not reflect a billable service as pt was admited after midnight on 05/02/23. Admission and Anticipated Discharge Date Admission Date: May 02, 2023 Supervising Physician Co-Signing Physician Notes I have seen and discussed the case with the collaborating CARLOS. I agree with the above H&P. I have reviewed and confirmed the patients medical history, the findings on physical examination, and the patients diagnosis and treatment plan with Sofy GONZALEZ and agree with the information documented. In short, Mr. Amador is a 58 year old gentlman who was admitted overnight with squamous cell carcinoma and failure to thrive. He is notable neutropenic s/p chemo 2 weeks ago. He is unable to eat. Pending PEG placement. Plan for transfusion, neupogen per onc, and PPN bridge until PEG placement. Rest of plan as above. Subjective Pt was seen and examined in room 323-1. F/U SCC ca with pancytopenia. Pt admitted overnight for eval for peg placement. Known R sided tongue SCC currently receiving chemo and XRT. He was admitted due to poor intake and GI eval for peg placement. He overall has poor intake and difficulty swallowing. He c/o lightheaded upon standing and fatigue. Denies f/c/s, chest pain, sob, vomiting or diarrhea. Over he has very hypersensitive smell which is problematic for him and causes worsened appetite. Review of Systems Review of Systems: All systems reviewed & are unremarkable except as noted in HPI & below Physical Exam Physical Exam: Gen: WD/WN, appears fatigue, NAD, A&O x3 HEENT: Normocephalic, atraumatic, conjunctivae moist, sclerae anicteric, mucous membranes moist. Lung: Clear to Auscultation bilaterally, no wheezes/rales/rhonchi Heart: Regular rate, regular rhythm, no murmurs, rubs, or gallops Abdomen: Soft, NT, ND +BS x 4 Extremities: No edema Skin: Warm, no rash, negative turgor. Results & Data Results & Data Vital Signs (Past 12 Hours) Vital Signs Temp Pulse Pulse Resp BP BP Pulse Ox 05/02/23 07:47 05/02/23 07:45 36.3 C L 92 H 16 128/78 98 05/02/23 04:20 05/02/23 04:19 36.6 C 91 H 18 128/72 99 05/02/23 03:30 88 18 131/75 98 05/02/23 03:06 85 16 139/79 98 05/02/23 01:59 82 18 126/78 98 05/02/23 00:15 86 16 131/75 100 O2 Del Method 05/02/23 07:47 Room Air 05/02/23 07:45 Room Air 05/02/23 04:20 Room Air 05/02/23 04:19 Room Air 05/02/23 03:30 Room Air 05/02/23 03:06 Room Air 05/02/23 01:59 Room Air 05/02/23 00:15 Room Air Laboratory Results Short CBC 05/01/23 05/02/23 Range/Units 20:02 06:10 WBC 1.25 L 0.96 L* (4.8-10.8) K/ul Hgb 7.7 L 7.1 L (14.0-18.0) g/dl Hct 21.4 L 19.8 L* (42.0-52.0) % Plt Count 62 L 48 L (130-400) K/uL BMP 05/01/23 05/02/23 19:54 06:10 Sodium 135 L 137 Potassium 4.7 4.1 Chloride 102 104 Carbon Dioxide 25 25 BUN 21 18 Creatinine 0.84 0.81 Glucose 94 82 Calcium 9.9 8.9 Liver Function 05/01/23 Range/Units 19:54 Total Bilirubin 1.0 (0.2-1.0) mg/dl Direct Bilirubin 0.3 H (0-0.2) mg/dl AST 12 L (13-39) U/L ALT 12 (7-52) U/L Alkaline Phosphatase 68 (34-104) U/L Albumin 4.2 (3.4-5.0) gm/dl Medications Administered Current Inpatient Medications Filgrastim (Filgrastim 300 Mcg/Ml Vial) 300 mcg SQ DAILY SHADY Stop: 05/03/23 09:01 Sodium Chloride (Nss) 1,000 mls @ 60 mls/hr IV .[id number] ONE Stop: 05/02/23 15:08 Last Infusion: 05/02/23 06:50 Dose: 60 mls/hr Acetaminophen (Ofirmev) 1,000 mg in 100 mls @ 400 mls/hr IV Q8H PRN PRN Reason: pain/fever Stop: 05/05/23 01:31 Last Infusion: 05/02/23 05:03 Dose: Infused Promethazine HCl 6.25 mg/ (Sodium Chloride) 50.25 mls @ 201 mls/hr IV Q6H PRN PRN Reason: Nausea And Vomiting Stop: 06/01/23 01:31 Pantoprazole Sodium 40 mg/ (Syringe) 10 mls @ 5 mls/min IV DAILY@1100 SHADY Stop: 06/01/23 10:59 Sodium Chloride (Nss) 250 mls @ 15 mls/hr IV .[id number] PRN PRN Reason: For Transfusion Duration Stop: 05/02/23 19:13 Multi-Ingredient Mouthwash/Gargle (First - Mouthwash Blm 119 Ml) 10 ml PO ACHS PRN PRN Reason: Sore Throat Stop: 06/01/23 05:19 Multivitamins (Multivitamin Tab) 1 tab PO DAILY [facility] Stop: 06/01/23 08:59 Last Admin: 05/02/23 08:04 Dose: 1 tab Polyethylene Glycol (Polyethylene (Miralax) 17 Gm Pack) 17 gm PO [id number] [facility] Stop: 06/01/23 08:59 Last Admin: 05/02/23 08:03 Dose: 17 gm
[2023-05-02] MEDS ORDERED: TPN/PPN CONSULT PHARMACY PRN (11:11)
[2023-05-02] MEDS: FILGRASTIM 300 MCG/ML VIAL SQ SCH (11:30)
[2023-05-02] MEDS ORDERED: DEXTROSE 10% 1,000 ML IV PRN (12:31)
--- NOTE | 2023-05-02 14:20 | Pharmacy Report ---
Pharmacy PN Initial Consult - Date of Service May 02, 2023 - Scope Pharmacy has been consulted to manage parenteral nutrition orders and order appropriate labs. As part of the Nutrition Support Team guidelines, pharmacy will work in conjunction with dietary when determining the patients caloric needs. - Subjective The patient is a 58 year old M admitted on 05/02/23 01:30 for HYPOMAG. Patient is to receive parenteral nutrition for prolonged NPO due to squamous cell carcinoma of base of tongue- awaiting PEG tube placement. Pertinent PMH: * squamous cell carcinoma of base of tongue - Objective Height: 5 ft 11 in Weight: 86.5 kg Diet: NPO Vascular Access:: peripheral antecubital Intake & Output (Last 24Hrs): Intake & Output 04/30/23 05/01/23 05/02/23 05/03/23 06:59 06:59 06:59 06:59 Intake Total 1720 / 1720 0 / 0 Output Total 400 / 400 Balance 1720 / 1720 -400 / -400 Weight 86.5 kg 86.5 kg Laboratory Data (Last 24 Hrs):: 05/01/23 05/02/23 19:54 06:10 Sodium 135 L 137 Potassium 4.7 4.1 Chloride 102 104 Carbon Dioxide 25 25 BUN 21 18 Creatinine 0.84 0.81 Glucose 94 82 Calcium 9.9 8.9 Phosphorus 4.1 Magnesium 1.5 L 1.7 Total Bilirubin 1.0 AST 12 L ALT 12 Alkaline Phosphatase 68 Albumin 4.2 Nutrition Assessment:: Please refer to the Notes section of the EMR for the most recent chief nurse anesthetist note. - Assessment * Potassium noted to be low this AM, repleted with KCl 40mEq IV, all other labs acceptable to begin PN * Macronutrients per dietary--starting at goal Day #1 * No additional volume needed per provider - Plan For day 1 of PN administration, the following will be ordered: Macronutrients Amino acids 85 grams/day Dextrose 100 grams/day Lipids 50 grams/day Micronutrients Combined electrolytes 40 mL - contains 35 mEq Na, 20 meq K, 4.5 mEq Ca, 5 mEq Mg, 35 mEq Cl, 29.5 mEq acetate per 20 mL Sodium phosphate 30 MMol Sodium chloride 40 mEq Potassium acetate 40 mEq Multivitamins 10 mL Trace Elements 1 mL Additional additives: Thiamine 100mg Total volume 2098 mL to be infused over 24 hrs will provide 1180 kcal/day Final osmolarity 871 mOsm/L (maximum for PPN is 900 mOsm/L) Labs to be ordered per PN order protocol Pharmacy will follow and adjust parenteral nutrition orders on a daily basis. Thank you.
[2023-05-02] MEDS: PANTOprazole 40 MG in SYRINGE 0 ML IV SCH (14:25)
[2023-05-02] MEDS ORDERED: CLINOLIPID 20% IV FAT EMULSION 250 ML IV SCH (16:00)
[2023-05-02] MEDS ORDERED: [UNRECOGNIZED DRUG - OTHER] IV SCH (16:00)
[2023-05-02] MEDS ORDERED: PERIPHERAL TPN IV SCH (16:00)
[2023-05-02] MEDS: STOP CLINOLIPID SCH (21:45)
[2023-05-03 06:58] LABS: Hematocrit (blood only) 23.1 % (42.0-52.0); Hemoglobin 8.4 g/dl (14.0-18.0); Mean Corpuscular Hemoglobin 31.2 pg (25.0-34.0); Mean Corpuscular Hgb Conc 36.4 g/dL (32.0-36.0); Mean Corpuscular Volume 85.9 fL (80.0-100.0); Mean Platelet Volume 9.2 fL (9.4-12.4); Platelet Count 64 K/uL (130-400); RDW Coefficient of Variation 16.5 % (11.5-14.5); RDW Standard Deviation 37.5 fL (36.4-46.3); Red Blood Count 2.69 M/uL (4.70-6.10); White Blood Count 1.24 K/ul (4.8-10.8)
[2023-05-03] MEDS ORDERED: TPN/PPN CONSULT PHARMACY PRN (07:15)
[2023-05-03 07:23] LABS: Albumin Globulin Ratio 1.7 (0.9-2); Albumin Level 3.3 gm/dl (3.4-5.0); BUN Creatinine Ratio 19.2 (10-20); Bilirubin,Total 0.9 mg/dl (0.2-1.0); Calcium 8.7 mg/dl (8.6-10.3); Creatinine Clr Calc Pharmacy 117.5 ml/min; Est GFR (African American) 118.5 ml/min; Est GFR (Non-African American) 102.2 ml/min; Magnesium 1.6 mg/dl (1.7-2.4); Phosphorus 3.8 mg/dl (2.5-4.9); Potassium 3.7 mmol/L (3.5-5.1); Total Protein 5.3 gm/dl (6.0-8.3)
[2023-05-03 07:34] LABS: Basophils # (auto) 0.01 K/uL (0.00-0.20); Basophils % (auto) 0.8 %; Eosinophils # (auto) 0.01 K/uL (0.00-0.50); Eosinophils % (auto) 0.8 %; Immature Granulocytes # (auto) 0.02 K/uL (0.01-0.20); Immature Granulocytes % (auto) 1.6 %; Lymphocytes # (auto) 0.12 K/uL (1.20-3.40); Lymphocytes % (auto) 9.7 %; Monocytes # (auto) 0.14 K/uL (0.11-0.59); Monocytes % (auto) 11.3 %; Neutrophils # (auto) 0.94 K/uL (1.40-6.50); Neutrophils % (auto) 75.8 %
[2023-05-03] MEDS: ACETAMINOPHEN 1,000 MG/100 ML VIAL IV PRN (08:06)
[2023-05-03] MEDS: FILGRASTIM 300 MCG/ML VIAL SQ SCH (08:26)
--- NOTE | 2023-05-03 09:01 | Radiation Oncology Progress Nt ---
Date of Service May 03, 2023 Assessment & Plan (1) Squamous cell carcinoma of base of tongue: Plan: 58-year-old gentleman currently admitted due to malnutrition. He has pancytopenia secondary to the chemotherapy. He was given Neupogen yesterday as well as 1 unit of packed red blood cells. With this his counts have improved. He continues to have significant dysphagia. We will plan to hold radiation therapy until next week. Plans have been made for him to be admitted to [facility] for tube placement on Sunday. He will be staying over till Sunday. He will therefore not resume treatment until Sunday. I reviewed with him that the missed treatments will be added to the end. We will continue to follow him as well as his laboratory studies in the electronic medical record. If he has any issues following discharge she can call our office with an update. Plan ATTENDING ADDENDUM: I have reviewed the patients chart and clinical information with the mid-level provider. The patient continues to recover. We will hold treatment until next week after successful PEG tube placement. Admission and Anticipated Discharge Date Admission Date: May 02, 2023 Subjective 02/07/2023. Patient self detected a right neck mass in October or November. He has had a history of a right sore throat. He saw his primary care provider and was prescribed Keflex for 5 days. Referred to ENT. There was some slight improvement. Seen at [facility] care. Treated with Afrin and Medrol Dosepak for sinus congestion. 02/09/2023. CT of the soft tissues of the neck. IMPRESSION: 1. 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 ENT evaluation is recommended. 2. Metastatic right-sided cervical lymphadenopathy, as described above. 02/13/2023. Otolaryngology consultation (Dr. Delcid). Examination revealed an exophytic mass coming from the right side of the tongue. Referred to Dr. Wallace. 02/14/2023. Otolaryngology consultation (Dr. Wallace). In office biopsy of the tongue base was performed. Recommendation for PET/CT. We will present his case at tumor board. Anticipate chemotherapy and radiation. Preliminary staging [id number]. 02/14/2023. Path report of biopsy reveals: A. Lymph node, right cervical, fine-needle aspiration by pathology: Adequacy: Satisfactory for evaluation. Category: Malignant. Interpretation: Metastatic squamous cell carcinoma, HPV positive. 02/27/2023. PET/CT. IMPRESSION: 1. Metabolically active mass involving the right palatine tonsil with extension into the right vallecula,compatible with the biopsy-proven squamous cell carcinoma. 2. Metabolically-active right level IIA and IIB cervical lymph node metastases. 3. No FDG PET-CT evidence of distant metastasis. 02/28/2022. Multidisciplinary tumor board: Consensus on Recommendations: After multidisciplinary discussion, the official tumor board recommendation was for primary chemoradiation therapy (will complete in [place]) and baseline NavDx. Multi-disciplinary Team: The patient was discussed today along with members of the multidisciplinary head and neck tumor conference including representatives from Otolaryngology (Dr. Allen, Dr. Carbone, Dr. Wallace, Dr. Gibbs, Dr. Alexandra), Radiation Oncology (Dr. Willis, Dr. Be), Pathology (Dr. Deluna), Medical Oncology (Dr. Myles, Dr. Jimenez, Dr. Obregon), Radiology (Dr. Shaikh), Oral Surgery (Dr. Calderon), and Dentistry (Dr. Gallegos). The nature of the patient's condition was discussed at length. 03/06/2023. Medical oncology consultation (Dr. Precious Colindres). Recommendation for combined radiation and chemotherapy. Chemotherapy comprised of weekly cispla tin. 03/25/2023. Dental evaluation (Dr. Higgins). 03/26/2023. Initiation of combined radiation and chemotherapy. 05/01/2023. Emergency room evaluation and admission for malnutrition and pancytopenia. Patient has not received chemotherapy in approximately 2 weeks due to low counts. He has had dysphagia from the radiation therapy. Arrangements had been in the process for feeding tube placement. He has been eating and drinking very little. He had only 1 bowel movement of the past week. Laboratory studies in the emergency room revealed pancytopenia. He was admitted for further evaluation and treatment. 03/02/2023. Patient is resting comfortably. Did have frequent visits through the night and did not get good rest. The soreness of his throat is unchanged from yesterday. He did receive Neupogen as well as 1 unit of packed red blood cells. Counts show improvement. Radiation History DIAGNOSIS: 02/14/2023. Oropharynx. Right base of tongue. SCC. HPV positive. Preliminary staging [id number]. Stage III. TREATMENT: Receiving combined radiation and chemotherapy. Chemo has been held for 2 weeks due to low counts. Physical Exam Constitutional: WD/WN, vitals as above + lethargic Eyes: EOM intact bilaterally ENMT: Ears: no hearing impairment Mucositis of the posterior pharynx is noted. Neck: trachea midline, no thyromegaly Hyperpigmentation of the anterior neck. Respiratory: normal respiratory effort, lungs clear to auscultation Cardiovascular: RRR, no murmur, no edema Gastrointestinal (Abdomen): normal bowel sounds, soft, nontender, no hepatos plenomegaly Skin: no rashes, warm and dry Neurologic: Normal strength and coordination. Psychiatric: A+Ox3, euthymic affect Results & Data Vital Signs (Past 12 Hours) Vital Signs Temp Pulse Resp BP Pulse Ox O2 Del Method 05/03/23 08:09 Room Air 05/03/23 05:25 36.8 C 86 16 135/74 94 Room Air 05/02/23 21:24 36.5 C 89 16 133/77 97 Room Air Laboratory Results 05/02/2023. CBCD. White count 1240. Hemoglobin 8.4 and platelets 64,000. PG Care Time/CCT Total # of Minutes Spent Total Time Spent with Patient: I spent [10] minutes in preparation for this follow up evaluation including reviewing all the clinical records, reviewing laboratory studies, pathology reports and imaging results. I spent [15] minutes with direct face to face interaction with the patient and/or family including performing a physical exam and answering all questions. I spent [10] minutes documenting this patient's visit. Coding Level of Care Code 84789 SUB INP/OBS CARE 3/50MIN Diagnoses Squamous cell carcinoma of base of tongue C01
--- NOTE | 2023-05-03 10:25 | Communication Note ---
Date of Service: May 03, 2023 Pt received Neupogen and 1U PRBC transfusion yesterday. Labs improved. He is started on PPN. Currently scheduled for push PEG placement in OR at [facility] on 05/07/2023. Pls recall GI prn
[2023-05-03] MEDS ORDERED: [UNRECOGNIZED DRUG - OTHER] IV SCH ×2 (11:30→16:00)
[2023-05-03] MEDS ORDERED: PERIPHERAL TPN IV SCH ×2 (11:30→16:00)
[2023-05-03] MEDS: MULTIVITAMIN TAB PO SCH (11:41)
[2023-05-03] MEDS: MAGNESIUM SULFATE / D5W 1 GM/100 ML BAG IV SCH ×2 (11:41→13:34)
[2023-05-03] MEDS: PANTOprazole 40 MG in SYRINGE 0 ML IV SCH (11:45)
--- NOTE | 2023-05-03 15:55 | Hospitalist Progress Note ---
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 He has had poor PO intake and presented to ED for malnutrition and admission for consideration of peg placement. Squamous of carcinoma base of tongue Pancytopenia Malnutrition due to starvation Last chemotherapy approximately 2 weeks ago Currently receiving daily radiation, radiation oncology consulted - plan to hold radiation therapy until next week Blood counts improving today after WBC 1.24 (from 0.96), Hgb 8.4 (from 7.1, s/p 1 u prbcs) and platelet count 64 (from 48) Discussed with gastroenterology and patient currently unable to have PEG placement due to neutropenia. Currently scheduled for push PEG placement in OR at [facility] on 05/07/2023 Continue to optimize in meantime Discussed with Dr. Colindres who recommends Neupogen 300mcg daily until ANC recovers, will give dose 05/02 and 05/03, count will need re evaluated for additional dosing tomorrow AM Continue PPN bridge PRN tylenol, salt water rinse for pain 2/2 above. Poor tolerance for narcotics, avoiding nsaids 2/2 anemia Hypomagnesemia Replaced DVT ppx: SCD FULL CODE PCP: Brent Schneider PA-C Dispo: Optimize patient for Peg Placement at [facility] on Monday 05/07. Pt needs a push peg with Dr. Dave. Will need stabilization of white blood cell count Admission and Anticipated Discharge Date Admission Date: May 02, 2023 Supervising Physician Co-Signing Physician Notes I have seen and discussed the case with the collaborating CARLOS. I agree with the above H&P. I have reviewed and confirmed the patients medical history, the findings on physical examination, and the patients diagnosis and treatment plan with Sofy GONZALEZ and agree with the information documented. In short, Mr. Amador is a 58 year old gentlman who was admitted overnight with squamous cell carcinoma and failure to thrive. He is notable neutropenic s/p chemo 2 weeks ago. He is unable to eat. Pending PEG placement for 05/07 as OP. Hgb stable. neupogen per onc, and PPN bridge until PEG placement. Rest of plan as above. Subjective Patient examined in 323 in follow-up for squamous cell carcinoma of tongue, pancytopenia. Feels the same since yesterday, no acute changes overnight. Still having significant oral pain but difficulty tolerating most pain medications. Is utilizing scheduled Tylenol. Also states that swish and swallow of warm salt water has been helpful in the past. Denies any fever, chills, lightheadedness, chest pain, shortness of breath, nausea, vomiting, abdominal pain, dysuria, diarrhea or constipation. Review of Systems Review of Systems: At least ten systems reviewed and negative except as noted in the HPI. Physical Exam Physical Exam: Gen: WD/WN, appears fatigued, NAD, A&O x3 HEENT: Normocephalic, atraumatic, conjunctivae moist, sclerae anicteric, mucous membranes moist, + mucositis Lung: Clear to Auscultation bilaterally, no wheezes/rales/rhonchi Heart: Regular rate, regular rhythm, no murmurs, rubs, or gallops Abdomen: Soft, NT, ND +BS x 4 Extremities: No edema Psych: +Depressed mood Skin: Warm, no rash Results & Data Results & Data Vital Signs (Past 12 Hours) Vital Signs Temp Pulse Resp BP Pulse Ox O2 Del Method 05/03/23 08:09 Room Air 05/03/23 05:25 36.8 C 86 16 135/74 94 Room Air Laboratory Results Short CBC 05/03/23 Range/Units 06:38 WBC 1.24 L (4.8-10.8) K/ul Hgb 8.4 L (14.0-18.0) g/dl Hct 23.1 L (42.0-52.0) % Plt Count 64 L (130-400) K/uL BMP 05/03/23 06:38 Sodium 139 Potassium 3.7 Chloride 104 Carbon Dioxide 30 BUN 14 Creatinine 0.73 Glucose 114 H Calcium 8.7 Liver Function 05/03/23 Range/Units 06:38 Total Bilirubin 0.9 (0.2-1.0) mg/dl AST 12 L (13-39) U/L ALT 11 (7-52) U/L Alkaline Phosphatase 55 (34-104) U/L Albumin 3.3 L (3.4-5.0) gm/dl Diagnostic Findings Chest X-Ray 05/01/23 18:33 XR chest 1V portable CLINICAL HISTORY: preop TECHNIQUE: Single frontal radiograph of the chest was obtained. Comparison: Comparison is made to CT chest 04/25/2023 FINDINGS: No lines and tubes are seen. The cardiomediastinal silhouette is normal. The lungs are clear. No evidence of pleural effusion or pneumothorax. IMPRESSION: No acute chest disease. ACT 112: Negative or not required by law. Electronically signed by: Won Dobbs M.D. 05/02/2023 9:15 AM KUB X-Ray 05/01/23 19:27 XR KUB/Abdomen 1 view CLINICAL HISTORY: constipation, nausea, tongue cancer TECHNIQUE: 1 view of the abdomen was obtained. Comparison: Comparison is made to CT abdomen pelvis 04/25/2023 FINDINGS: Lung bases are unremarkable. The osseous structures are grossly unremarkable. The bowel gas pattern is nonobstructive. A moderate amount of stool is noted within the large bowel. IMPRESSION: Nonobstructive bowel gas pattern. ACT 112: Negative or not required by law. Electronically signed by: Won Dobbs M.D. 05/02/2023 9:30 AM
[2023-05-03] MEDS ORDERED: CLINOLIPID 20% IV FAT EMULSION 250 ML IV SCH (16:00)
[2023-05-03] MEDS ORDERED: COUGH DROP (SUGAR FREE) LOZ 24 LOZ/1 BOX BUCCAL PRN (16:37)
--- NOTE | 2023-05-03 22:21 | Electrocardiogram Report ---
Test Reason : Blood Pressure : / mmHG Vent. Rate : 084 BPM Atrial Rate : 084 BPM P-R Int : 128 ms QRS Dur : 084 ms QT Int : 358 ms P-R-T Axes : 041 011 005 degrees QTc Int : 423 ms Normal sinus rhythm Minimal voltage criteria for LVH, may be normal variant ( R in aVL ) Borderline ECG When compared with ECG of 25-APR-2023 10:21, Inverted T waves have replaced nonspecific T wave abnormality in Inferior leads T wave amplitude has increased in Lateral leads Confirmed by Glenn Miller ([id number]) on 05/03/2023 10:21:24 PM Referred By: REFERRED SELF Confirmed By:Glenn Miller
[2023-05-03] MEDS: STOP CLINOLIPID SCH (22:54)
[2023-05-04 08:11] LABS: Albumin Globulin Ratio 1.5 (0.9-2); Albumin Level 3.4 gm/dl (3.4-5.0); BUN Creatinine Ratio 17.9 (10-20); Bilirubin,Total 1.2 mg/dl (0.2-1.0); Calcium 8.9 mg/dl (8.6-10.3); Creatinine Clr Calc Pharmacy 109.9 ml/min; Est GFR (African American) 115.3 ml/min; Est GFR (Non-African American) 99.5 ml/min; Globulin 2.2 gm/dl (2.5-4.0); Magnesium 1.8 mg/dl (1.7-2.4); Potassium 4.1 mmol/L (3.5-5.1); Total Protein 5.6 gm/dl (6.0-8.3)
[2023-05-04] MEDS: POLYETHYLENE (MIRALAX) 17 GM PACK PO SCH (08:41)
[2023-05-04] MEDS: MULTIVITAMIN TAB PO SCH (08:59)
[2023-05-04 09:03] LABS: Basophils # (auto) 0.01 K/uL (0.00-0.20); Basophils % (auto) 0.8 %; Dohle Bodies 1+; Hemoglobin 8.8 g/dl (14.0-18.0); Immature Granulocytes # (auto) 0.02 K/uL (0.01-0.20); Immature Granulocytes % (auto) 1.5 %; Lymphocytes # (auto) 0.16 K/uL (1.20-3.40); Mean Corpuscular Hemoglobin 31.3 pg (25.0-34.0); Mean Corpuscular Hgb Conc 36.7 g/dL (32.0-36.0); Mean Corpuscular Volume 85.4 fL (80.0-100.0); Mean Platelet Volume 9.6 fL (9.4-12.4); Monocytes # (auto) 0.13 K/uL (0.11-0.59); Monocytes % (auto) 9.8 %; Neutrophils # (auto) 1.01 K/uL (1.40-6.50); Neutrophils % (auto) 75.9 %; Platelet Count 84 K/uL (130-400); RDW Coefficient of Variation 17.1 % (11.5-14.5); RDW Standard Deviation 39.4 fL (36.4-46.3); Red Blood Count 2.81 M/uL (4.70-6.10); White Blood Count 1.33 K/ul (4.8-10.8)
[2023-05-04] MEDS: FILGRASTIM 300 MCG/ML VIAL SQ SCH (11:04)
[2023-05-04] MEDS: ACETAMINOPHEN 1,000 MG/100 ML VIAL IV SCH ×2 (11:05→17:59)
[2023-05-04] MEDS: PANTOprazole 40 MG in SYRINGE 0 ML IV SCH (11:05)
--- NOTE | 2023-05-04 12:15 | Hospitalist Progress Note ---
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 He has had poor PO intake and presented to ED for malnutrition and admission for consideration of peg placement. Squamous of carcinoma base of tongue Pancytopenia Malnutrition due to starvation Last chemotherapy approximately 2 weeks ago Currently receiving daily radiation, radiation oncology consulted - plan to hold radiation therapy until next week Blood counts continue to improve - WBC 1.33 (from 1.24), Hgb 8.8 (from 8.4) and platelet count 84 (from 64) Discussed with gastroenterology and patient currently unable to have PEG placement due to neutropenia Scheduled for push PEG placement in OR at [facility] on 05/07/2023 Continue to optimize in meantime with PPN bridge Discussed updated AM labs with Dr. Colindres today, who recommends continuing Neupogen 300mcg daily until PEG placement PRN tylenol, salt water rinse, Chloraseptic for pain 2/2 above. Poor tolerance for narcotics, avoiding nsaids 2/2 anemia Hypomagnesemia Replaced, WNL today DVT ppx: SCD FULL CODE PCP: Brent Schneider PA-C Dispo: Continue optimizing with PPN, daily Neupogen. Plan for discharge on Sunday, Push PEG Placement at [facility] on Monday 05/07 so long as WBC continues to improve. Called with update 05/04. Admission and Anticipated Discharge Date Admission Date: May 02, 2023 Supervising Physician Co-Signing Physician Notes I have seen and discussed the case with the collaborating CARLOS. I agree with the above H&P. I have reviewed and confirmed the patients medical history, the findings on physical examination, and the patients diagnosis and treatment plan with Sofy GONZALEZ and agree with the information documented. In short, Mr. Amador is a 58 year old gentlman who was admitted overnight with squamous cell carcinoma and failure to thrive. He is notable neutropenic s/p chemo 2 weeks ago. He is unable to eat. Pending PEG placement for 05/07 as OP. Hgb stable. Continue neupogen per onc, and PPN bridge until PEG placement. Rest of plan as above. Subjective Patient examined in 323 in follow-up for squamous cell carcinoma of tongue, pancytopenia. Feeling significantly better than yesterday with more energy. Still having oral pain but feels that scheduled Tylenol is helping some. Denies any fever, chills, lightheadedness, chest pain, shortness of breath, nausea, vomiting, abdominal pain, dysuria, diarrhea or constipation. Urinating without issue. Review of Systems Review of Systems: At least ten systems reviewed and negative except as noted in the HPI. Physical Exam Physical Exam: Gen: WD/WN, appears improved, resting in bed comfortably, NAD, A&O x3, PPN running HEENT: Normocephalic, atraumatic, conjunctivae moist, sclerae anicteric, mucous membranes moist, + mucositis Lung: Clear to Auscultation bilaterally, no wheezes/rales/rhonchi Heart: Regular rate, regular rhythm, no murmurs, rubs, or gallops Abdomen: Soft, NT, ND +BS x 4 Extremities: No edema Skin: Warm, no rash Results & Data Results & Data Vital Signs (Past 12 Hours) Vital Signs Temp Pulse Resp BP Pulse Ox O2 Del Method 05/04/23 08:03 36.6 C 80 16 127/71 96 Room Air Laboratory Results Short CBC 05/04/23 Range/Units 07:03 WBC 1.33 L (4.8-10.8) K/ul Hgb 8.8 L (14.0-18.0) g/dl Hct 24.0 L (42.0-52.0) % Plt Count 84 L (130-400) K/uL BMP 05/04/23 07:03 Sodium 139 Potassium 4.1 Chloride 104 Carbon Dioxide 31 BUN 14 Creatinine 0.78 Glucose 119 H Calcium 8.9 Liver Function 05/04/23 Range/Units 07:03 Total Bilirubin 1.2 H (0.2-1.0) mg/dl AST 42 H (13-39) U/L ALT 47 (7-52) U/L Alkaline Phosphatase 65 (34-104) U/L Albumin 3.4 (3.4-5.0) gm/dl Diagnostic Findings Chest X-Ray 05/01/23 18:33 XR chest 1V portable CLINICAL HISTORY: preop TECHNIQUE: Single frontal radiograph of the chest was obtained. Comparison: Comparison is made to CT chest 04/25/2023 FINDINGS: No lines and tubes are seen. The cardiomediastinal silhouette is normal. The lungs are clear. No evidence of pleural effusion or pneumothorax. IMPRESSION: No acute chest disease. ACT 112: Negative or not required by law. Electronically signed by: Won Dobbs M.D. 05/02/2023 9:15 AM KUB X-Ray 05/01/23 19:27 XR KUB/Abdomen 1 view CLINICAL HISTORY: constipation, nausea, tongue cancer TECHNIQUE: 1 view of the abdomen was obtained. Comparison: Comparison is made to CT abdomen pelvis 04/25/2023 FINDINGS: Lung bases are unremarkable. The osseous structures are grossly unremarkable. The bowel gas pattern is nonobstructive. A moderate amount of stool is noted within the large bowel. IMPRESSION: Nonobstructive bowel gas pattern. ACT 112: Negative or not required by law. Electronically signed by: Won Dobbs M.D. 05/02/2023 9:30 AM
[2023-05-04] MEDS ORDERED: CLINOLIPID 20% IV FAT EMULSION 250 ML IV SCH (16:00)
[2023-05-04] MEDS ORDERED: [UNRECOGNIZED DRUG - OTHER] IV SCH (16:00)
[2023-05-04] MEDS ORDERED: PERIPHERAL TPN IV SCH (16:00)
[2023-05-04] MEDS: STOP CLINOLIPID SCH (22:02)
[2023-05-05] MEDS: ACETAMINOPHEN 1,000 MG/100 ML VIAL IV SCH ×3 (02:31→17:29)
[2023-05-05 06:25] LABS: BUN Creatinine Ratio 19.3 (10-20); Calcium 8.9 mg/dl (8.6-10.3); Creatinine Clr Calc Pharmacy 103.3 ml/min; Est GFR (African American) 112.4 ml/min; Magnesium 1.8 mg/dl (1.7-2.4); Phosphorus 3.9 mg/dl (2.5-4.9); Potassium 4.5 mmol/L (3.5-5.1)
[2023-05-05] MEDS: MULTIVITAMIN TAB PO SCH (08:40)
[2023-05-05 08:50] LABS: Hematocrit (blood only) 25.2 % (42.0-52.0); Hemoglobin 9.1 g/dl (14.0-18.0); Mean Corpuscular Hemoglobin 31.7 pg (25.0-34.0); Mean Corpuscular Hgb Conc 36.1 g/dL (32.0-36.0); Mean Corpuscular Volume 87.8 fL (80.0-100.0); Mean Platelet Volume 9.7 fL (9.4-12.4); Platelet Count 100 K/uL (130-400); RDW Coefficient of Variation 17.6 % (11.5-14.5); RDW Standard Deviation 40.8 fL (36.4-46.3); Red Blood Count 2.87 M/uL (4.70-6.10); White Blood Count 1.59 K/ul (4.8-10.8)
[2023-05-05] MEDS: FILGRASTIM 300 MCG/ML VIAL SQ SCH (09:48)
[2023-05-05] MEDS: PANTOprazole 40 MG in SYRINGE 0 ML IV SCH (10:04)
[2023-05-05 10:07] LABS: Anisocytosis Present; Basophils # (auto) 0.01 K/uL (0.00-0.20); Basophils % (auto) 0.6 %; Eosinophils # (auto) 0.01 K/uL (0.00-0.50); Eosinophils % (auto) 0.6 %; Immature Granulocytes # (auto) 0.03 K/uL (0.01-0.20); Immature Granulocytes % (auto) 1.9 %; Lymphocytes # (auto) 0.17 K/uL (1.20-3.40); Lymphocytes % (auto) 10.7 %; Monocytes # (auto) 0.26 K/uL (0.11-0.59); Monocytes % (auto) 16.4 %; Neutrophils # (auto) 1.11 K/uL (1.40-6.50); Neutrophils % (auto) 69.8 %; Polychromasia 1+
--- NOTE | 2023-05-05 15:35 | Hospitalist Progress Note ---
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 He has had poor PO intake and presented to ED for malnutrition and admission for consideration of peg placement. Cell counts continue to increase with platelets now above 100. Squamous of carcinoma base of tongue Pancytopenia Malnutrition due to starvation Last chemotherapy approximately 2 weeks ago Currently receiving daily radiation, radiation oncology consulted - plan to hold radiation therapy until next week Blood counts continue to improve Discussed with gastroenterology and patient currently unable to have PEG placement due to neutropenia Scheduled for push PEG placement in OR at [facility] on 05/07/2023 Continue to optimize in meantime with PPN bridge Discussed updated AM labs with Dr. Colindres today, who recommends continuing Neupogen 300mcg daily until PEG placement PRN tylenol, salt water rinse, Chloraseptic for pain 2/2 above. Poor tolerance for narcotics, avoiding nsaids 2/2 anemia Hypomagnesemia WNL today DVT ppx: SCD FULL CODE PCP: Brent Schneider PA-C Dispo: Continue optimizing with PPN, daily Neupogen. Plan for discharge on Sunday, Push PEG Placement at [facility] on Monday 05/07 so long as WBC continues to improve. Admission and Anticipated Discharge Date Admission Date: May 02, 2023 Subjective NAEO Endorses ongoing mouth pain, difficult to manage given sensitive gag reflex 2/2 radiation Denies any other acute symptoms Review of Systems Review of Systems: All systems reviewed & are unremarkable except as noted in Subjective Physical Exam Constitutional: WD/WN, vitals as above Neck: dusky discoloration of right neck, no signs of overlying cellulitis Respiratory: normal respiratory effort, lungs clear to auscultation Gastrointestinal (Abdomen): normal bowel sounds, soft, nontender, no hepatosplenomegaly Results & Data Results & Data Vital Signs (Past 12 Hours) Vital Signs Temp Pulse Resp BP BP Pulse Ox O2 Del Method 05/05/23 15:09 36.3 C L 90 16 123/72 95 Room Air 05/05/23 06:56 36.9 C 86 16 107/68 94 Room Air Laboratory Results Short CBC 05/05/23 Range/Units 05:52 WBC 1.59 L (4.8-10.8) K/ul Hgb 9.1 L (14.0-18.0) g/dl Hct 25.2 L (42.0-52.0) % Plt Count 100 L (130-400) K/uL [facility] 05/05/23 05:49 Sodium 139 Potassium 4.5 Chloride 106 Carbon Dioxide 30 BUN 16 Creatinine 0.83 Glucose 116 H Calcium 8.9 Medications Administered Home Medications Medication Instructions Recorded Confirmed Last Taken cholecalciferol (vitamin D3) 125 125 mcg PO DAILY 03/01/23 05/01/23 04/25/23 mcg (5,000 unit) capsule multivitamin 1 tab PO DAILY 03/01/23 05/01/23 04/25/23 polyethylene glycol 3350 17 17 g PO .MWF 03/01/23 05/01/23 04/23/23 gram/dose oral powder krill 350 mg-omega-3 90 mg-dha 24 1 cap PO DAILY 04/04/23 05/01/23 04/25/23 mg-epa 50 [id number] capsule (MegaRed [place]-3 Krill Oil) ondansetron HCl 8 mg tablet 8 mg PO Q8H PRN nausea/vomiting 04/04/23 05/01/23 Unknown prochlorperazine maleate 10 mg 10 mg PO Q6H PRN nausea/vomiting 04/04/23 05/01/23 Unknown tablet (Compazine) hydrochlorothiazide 25 mg tablet 25 mg PO DAILY 04/17/23 05/01/23 04/25/23 ibuprofen 400 mg tablet 400 mg PO Q6H PRN Pain 04/17/23 05/01/23 Unknown tramadol 50 mg tablet 50 mg PO Q8H PRN pain #60 tabs 04/24/23 05/01/23 04/23/23 Magic Mouthwash 300 mL mouthwash 10 ml mucous membrane ACHS PRN 04/25/23 05/01/23 Unknown Sore Throat metoclopramide HCl 10 mg tablet 10 mg PO Q6 05/01/23 05/01/23 Unknown pantoprazole 40 mg tablet,delayed 40 mg PO QAM 05/01/23 05/01/23 Unknown release Active Medications Generic Name Dose Route Start Last Admin Trade Name Freq PRN Reason Stop Dose Admin Filgrastim 300 mcg 05/04/23 09:00 05/05/23 09:48 Filgrastim 300 Mcg/Ml Vial SQ 06/03/23 08:59 300 mcg DAILY SHADY Administration Pantoprazole Sodium 40 mg/ 10 mls @ 5 mls/min 05/02/23 11:00 05/05/23 10:04 Syringe IV 06/01/23 10:59 Not Given DAILY@1100 SHADY Acetaminophen 1,000 mg in 100 mls @ 400 mls/hr 05/04/23 09:30 05/05/23 08:39 Ofirmev IV 05/07/23 09:29 Not Given Q8H SHADY Amino Acids 2,114 ml/ 2,114 mls @ 88.1 mls/hr 05/04/23 16:00 05/04/23 15:57 Nutrition (Parenteral) IV 05/05/23 15:59 88.1 mls/hr .Q24H SHADY Administration Protocol Miscellaneous 1 each 05/02/23 22:00 05/04/23 22:02 Stop Clinolipid N/A 06/01/23 21:59 1 each DAILY@2200 SHADY Administration Multivitamins 1 tab 05/02/23 09:00 05/05/23 08:40 Multivitamin Tab PO 06/01/23 08:59 Not Given DAILY SHADY Polyethylene Glycol 17 gm 05/02/23 09:00 05/04/23 08:41 Polyethylene (Miralax) 17 Gm Pack PO 06/01/23 08:59 Not Given MoWeFr@0900 [facility]
[2023-05-05] MEDS ORDERED: AA 4.25%/D5W 2L 2,104 ML in Peripheral TPN bag 0 ML IV SCH (16:00)
[2023-05-05] MEDS ORDERED: CLINOLIPID 20% IV FAT EMULSION 250 ML IV SCH (16:00)
[2023-05-05] MEDS: STOP CLINOLIPID SCH (22:12)
[2023-05-06] MEDS: ACETAMINOPHEN 1,000 MG/100 ML VIAL IV SCH ×2 (00:47→07:41)
[2023-05-06] MEDS: MULTIVITAMIN TAB PO SCH (07:41)
[2023-05-06 08:22] LABS: Hematocrit (blood only) 26.7 % (42.0-52.0); Hemoglobin 9.4 g/dl (14.0-18.0); Mean Corpuscular Hemoglobin 31.4 pg (25.0-34.0); Mean Corpuscular Hgb Conc 35.2 g/dL (32.0-36.0); Mean Corpuscular Volume 89.3 fL (80.0-100.0); Mean Platelet Volume 9.3 fL (9.4-12.4); Platelet Count 122 K/uL (130-400); RDW Coefficient of Variation 18.1 % (11.5-14.5); RDW Standard Deviation 48.6 fL (36.4-46.3); Red Blood Count 2.99 M/uL (4.70-6.10); White Blood Count 2.92 K/ul (4.8-10.8)
[2023-05-06 08:28] LABS: BUN Creatinine Ratio 19.5 (10-20); Creatinine Clr Calc Pharmacy 98.6 ml/min; Est GFR (African American) 110.3 ml/min; Est GFR (Non-African American) 95.1 ml/min; Magnesium 1.9 mg/dl (1.7-2.4); Phosphorus 3.7 mg/dl (2.5-4.9); Potassium 4.5 mmol/L (3.5-5.1)
[2023-05-06] MEDS: FILGRASTIM 300 MCG/ML VIAL SQ SCH (08:33)
[2023-05-06 08:37] LABS: Basophils # (auto) 0.05 K/uL (0.00-0.20); Basophils % (auto) 1.7 %; Dohle Bodies 1+; Eosinophils # (auto) 0.02 K/uL (0.00-0.50); Eosinophils % (auto) 0.7 %; Immature Granulocytes # (auto) 0.16 K/uL (0.01-0.20); Immature Granulocytes % (auto) 5.5 %; Lymphocytes # (auto) 0.25 K/uL (1.20-3.40); Lymphocytes % (auto) 8.6 %; Monocytes # (auto) 0.48 K/uL (0.11-0.59); Monocytes % (auto) 16.4 %; Neutrophils # (auto) 1.96 K/uL (1.40-6.50); Neutrophils % (auto) 67.1 %; Polychromasia 1+; Toxic Granulation 1+
[2023-05-06] MEDS: PANTOprazole 40 MG in SYRINGE 0 ML IV SCH (10:34)
[2023-05-06] MEDS ORDERED: CLINOLIPID 20% IV FAT EMULSION 250 ML IV SCH (16:00)
[2023-05-06] MEDS ORDERED: AA 4.25%/D5W 2L 2,108 ML in Peripheral TPN bag 0 ML IV SCH (16:00)
--- NOTE | 2023-05-06 16:12 | Discharge Summary ---
Discharge Summary Date of Service May 06, 2023 Notes For Next Care Provider Medication Changes From Visit -Holding HCTZ given normotensive pressures iso malnutrition/weightloss; consider resumption if elevated once nutrition optimized with PEG Admission HPI Per Admitting Provider History obtained from patient and records. Medical history significant for right tonsillar CA ongoing chemoradiation, chronic pancytopenia (baseline hemoglobin of 9), GERD. 2 [facility] ER visits this month. 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 Patient currently undergoing chemoradiation. Progressive difficulty in oral intake with regurgitation over the last few weeks. Mouth sores and obstipation symptoms for about a week. No abdominal pain. No bleeding noted. Some weight loss. No chest pain, no SOB. No fever, no chills. Outpatient providers recommended PEG tube placement following office visit this week. Patient directed to ER for evaluation. 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 Admission Exam Per Admitting Provider GENERAL: Slightly uncomfortable, pleasant, no respiratory distress SKIN: Pallor, warm HEENT: Partial alopecia, pale palpebral conjunctivae, no ptosis, dry buccal mucosa NECK : Supple, mild erythema, minimal tenderness CHEST : CTA, no tenderness HEART : RRR, no obvious murmurs ABDOMEN: Some distention, nontender EXTREMITIES : No LE swelling/tenderness, no other conspicuous deformities noted NEUROLOGIC : Coherent, no facial asymmetry, no other gross focality Principal Dx & Hospital Course #1 = Principal Diagnosis (1) Squamous cell carcinoma of base of tongue: (2) Pancytopenia: (3) Malnutrition due to starvation: This is a 58-year-old gentleman who is recent diagnosis of 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 He has had poor PO intake and presented to ED for malnutrition and admission for consideration of peg placement. Patient received 4 days worth of PPN as well as Neupogen. Patient 's cell counts improved to an acceptable level at which discharge late on Sunday after PPN was coordinated, with plans for patient to present to [facility] on 05/07 for PEG placement. Squamous of carcinoma base of tongue Pancytopenia Malnutrition due to starvation Last chemotherapy approximately 2 weeks ago Currently receiving daily radiation, radiation oncology consulted - plan to hold radiation therapy until next week, to be coordinated upon discharge Received daily Neupogen--Blood counts continue to improve--2.94 WBC, PLt 122 on discharge Scheduled for push PEG placement in OR at [facility] on 05/07/2023 Salt water rinse prn for pain Discharge Exam Constitutional WD/WN, vitals as above ENMT limited ability to converse 2/2 pain Neck skin discoloration on neck 2/2 radiation Respiratory normal respiratory effort, lungs clear to auscultation Gastrointestinal (Abdomen) normal bowel sounds, soft, nontender, no hepatosplenomegaly Updated Medication List Medication Instructions Recorded Confirmed Type cholecalciferol (vitamin D3) 125 125 mcg PO DAILY 03/01/23 05/01/23 History mcg (5,000 unit) capsule multivitamin 1 tab PO DAILY 03/01/23 05/01/23 History polyethylene glycol 3350 17 17 g PO .MWF 03/01/23 05/01/23 History gram/dose oral powder krill 350 mg-omega-3 90 mg-dha 24 1 cap PO DAILY 04/04/23 05/01/23 History mg-epa 50 [id number]-avely capsule (MegaRed [place]-3 Krill Oil) ondansetron HCl 8 mg tablet 8 mg PO Q8H PRN nausea/vomiting 04/04/23 05/01/23 History prochlorperazine maleate 10 mg 10 mg PO Q6H PRN nausea/vomiting 04/04/23 05/01/23 History tablet (Compazine) hydrochlorothiazide 25 mg tablet 25 mg PO DAILY 04/17/23 05/01/23 History ibuprofen 400 mg tablet 400 mg PO Q6H PRN Pain 04/17/23 05/01/23 History tramadol 50 mg tablet 50 mg PO Q8H PRN pain #60 tabs 04/24/23 05/01/23 Rx Magic Mouthwash 300 mL mouthwash 10 ml mucous membrane ACHS PRN 04/25/23 05/01/23 History Sore Throat metoclopramide HCl 10 mg tablet 10 mg PO Q6 05/01/23 05/01/23 History pantoprazole 40 mg tablet,delayed 40 mg PO QAM 05/01/23 05/01/23 History release Hospital Stay Data Consultations 05/01/23 20:29 ED Decision to Admit Stat 05/02/23 01:32 Consult Radiation Oncology Routine 10/25/23 04:11 Consult Gastroenterology Routine Pending Results Patient Have Any Pending Studies at Discharge: No Discharge Instructions Given to Patient (Per Discharging Provider) You were admitted for neutropenia and dehydration You received 4 days of IV nutrition/amino acids and fluids, as well as a medication to help stimulate your bone marrow to increase your blood counts. As of discharge, your WBC: 2.92, Hgb: 9.4, Platelets 122 You will discharge today with plans for PEG placement tomorrow at [facility]. Understanding the intake is limited secondary to pain, please avoid any liquids/food after midnight--wetting mouth is acceptable and regular hygiene as you are able to tolerate. You'll resume most of your vitamins/supplements/medications once PEG is placed; however, monitor blood pressures prior to starting HCTZ (your blood pressure medication) as they are on the lower end given weightloss/malnutrition. Please discuss resuming this medication with your PCP/Oncologist if pressures become high/stable Total Time Total Time Spent Total Time Spent (In Minutes): 35
== END 2023-05-06 17:05 | disposition home or self-care (01) | DRG 640 ==
LOC: ED 17:27 → EDINP 05-02 01:30 → 3E 05-02 03:59